=== PATIENT | male | born 1995 | race Caucasian/White ===

== ENCOUNTER 2020-11-11 14:43 | Outpatient (REF) | payer MEDICAID, SELFPAY | END 2020-11-11 14:44 | disposition home or self-care (01) | LOC: HO.LAB 14:43 | PROVIDERS: Visit Provider Internal Medicine | DX: Z20.822 Contact with and (suspected) exposure to COVID-19 (principal) | CPT/HCPCS: 36415; C9803; U0003; U0005 ==

== ENCOUNTER 2020-11-22 12:34 | Outpatient (REF) | payer MEDICAID, SELFPAY ==
[2020-11-22 13:09] LABS: IDNOW Serial# 08D9AD1C
[2020-11-22 13:10] LABS: COVID-19 Test Negative (Negative)
== END 2020-11-22 12:35 | disposition home or self-care (01) ==
LOC: HO.LAB 12:34
PROVIDERS: Visit Provider Internal Medicine
DX: Z20.822 Contact with and (suspected) exposure to COVID-19 (principal)
CPT/HCPCS: 36415; 87635; C9803

== ENCOUNTER 2021-06-12 10:01 | Emergency (ER) | payer MEDICAID, SELFPAY ==
[2021-06-12 10:35] VITALS: BP 124/78; PULSE 78; RESP 18; TEMP 36.7; O2SAT 98; BMI 26.4
--- NOTE | 2021-06-12 11:05 | ED_ITS ---
HPI - URI/Sore Throat General Chief Complaint: Upper Respiratory Symptoms Stated Complaint: Flu symptoms Time Seen by Provider: 06/12/21 10:27 Source: patient Mode of arrival: ambulatory Limitations: no limitations History of Present Illness HPI Narrative: Patient presents to ED for slight cough, body aches, and runny nose. Patient states having similar symptoms. Patient denies any chest pain or shortness of breath. Patient states he is vaccinated against COVID. Patient states family at home having similar symptoms. MD elicited complaint: fever, cough and sore throat Related Data Allergies Allergy/AdvReac Type Severity Reaction Status Date / Time No Known Allergies Allergy Verified 06/12/21 10:36 [No Known Allergies*] Review of Systems Review of Systems: Yes all other systems are reviewed and are negative Constitutional: Constitutional: Reports as per HPI, Reports no additional constitutional complaints, Reports body ache(s), Reports chills and Reports fatigue Eyes: Eyes: Reports as per HPI and Reports no additional eye complaints ENT: Reports system reviewed and no additional complaints, except as documented, Reports as per HPI, Reports nasal congestion and Reports sore throat Cardiovascular: Cardiovascular: Reports as per HPI, Reports no additional cardiovascular complaints, Denies chest pain, Denies chest pain at rest, Denies chest pain with activity, Denies dyspnea and Denies dyspnea on exertion Respiratory: Respiratory: Reports as per HPI, Reports no additional respiratory complaints, Denies cough, Denies pain on inspiration, Denies pain with cough, Denies dyspnea and Denies dyspnea on exertion Gastrointestinal: Gastrointestinal: Reports as per HPI and Reports no additional gastrointestinal complaints Genitourinary: Genitourinary: Reports no additional male genitourinary complaints and Reports as per HPI Musculoskeletal: Musculoskeletal: Reports no additional musculoskeletal complaints and Reports as per HPI Neurologic: Reports system reviewed and no additional complaints, except as documented and Reports as per HPI Psychiatric: Psychiatric: Reports no additional psychiatric complaints and Reports as per HPI Endocrine: Endocrine: Reports fatigue PMFSH Past Medical History Medical History (Updated 06/12/21 @ 11:54 by MARY Kulkarni) No known health problems Social History Social History Advance Directives: No Advance Directives Information Provided: Yes Physical Exam Vital Signs: Vital Signs: Last Vital Signs Temp 98.0 F 06/12/21 10:35 Pulse 78 06/12/21 10:35 Resp 18 10/25/21 10:35 BP 124/78 06/12/21 10:35 Pulse Ox 98 06/12/21 10:35 Body Mass Index 26.4 Const: General: cooperative, healthy appearing, comfortable, no acute distress, well developed, alert, awake and Physically active Orientation/con sciousness: patient oriented x3 HENMT: Head: Yes normal to inspection, Yes No palpable skull fracture present, Yes normocephalic, Yes atraumatic and No abrasion Ears: hearing grossly normal bilaterally, external ears normal, TM's normal bilaterally, TM normal on the right, TM normal on the left, EAC's normal, mastoids normal and no periauricular adenopathy General nose exam: Normal external nose present and Normal nares present Face and sinus: Yes normal facial exam and Yes sinuses nontender Teeth and gingiva: dentition normal and gingiva normal Throat: Yes posterior oropharynx normal, Yes tonsils normal and Yes uvula midline Eyes: General: appearance normal, both eyes and all related structures Neck: Neck: Yes normal visual inspection, Yes full ROM, Yes no lymphadenopathy, Yes no meningeal signs, Yes trachea midline, Yes supple and No tender Chest: Chest palpation & inspection: normal inspection of the chest and normal palpation of entire chest wall Resp: Effort & Inspection: normal respiratory effort and able to speak in complete sentences Auscultation: clear to auscultation bilaterally Cardio: Jugular venous distension: no JVD Heart sounds: S1 normal heart sound present and S2 normal heart sound present GI: Inspection: Yes normal to inspection and No abdominal wall ecchymosis Palpation (GI): Soft to palpation, not firm, nontender, no guarding and not rigid : General: No CVA tenderness and Yes no CVA tenderness Back/Spine/Pelvis: Back: no CVA tenderness, No CVA tenderness and No back tenderness Skin: General skin exam: no rashes or lesions noted and elasticity normal Neuro: General: patient oriented x3, gait normal, no meningeal signs and CN's II-XI intact bilaterally Cranial nerves: Yes CN's II-XII intact bilaterally Extrem: General: Yes normal to inspection and Yes full ROM Psych: Appearance: grossly normal, well kempt and not disheveled Course Course Course Narrative: Patient is swabbed for COVID and strep. Reevaluation(s) Reevaluation #1: Patient's COVID swab, influenza, RSV, and strep test came back negative. Patient is safe for discharge. Time: 11:52 MDM - URI/Sore Throat MDM Narrative Medical decision making narrative: URI. Viral syndrome Lab Data Labs: Lab Results 06/12/21 06/12/21 06/12/21 Range/Units 10:50 10:50 11:19 Coronavirus (PCR) NEGATIVE (Negative) COVID-19 ([facility]ELICA) Negative (Negative) COVID-19 Clin Com See Note Influenza Type A (PCR) NEGATIVE (Negative) Influenza Type B (PCR) NEGATIVE (Negative) RSV RNA Qual (PCR) NEGATIVE (Negative) S. pyogenes GrpA WANDA Negative (Negative) Discharge Plan Discharge Clinical Impression: Upper respiratory infection Patient Disposition: Home, Self-Care Instructions: Upper Respiratory Infection (ED), Viral Syndrome (ED) Additional Instructions: Sood hisopo COVID, influenza, RSV, prueba de estreptococos result? negativa. Sherif un seguimiento con el proveedor de atenci?n primaria. Regrese al servicio de urgencias si tiene dolor en el pecho, dificultad para respirar, babeo, cambio en la voz, ronquera, dolor en la pantorrilla, debilidad, mareos, fiebre o cualquier otro s?ntoma preocupante. Stand Alone Forms: Work/School Release Interventions: ED Discharge Assessment Last Done: 06/12/21 11:56 Discharge Date/Time: 06/12/21 11:59 Print Language: Salvadorean
[2021-06-12 11:16] LABS: IDNOW Serial# 9DD0AD1C
[2021-06-12 11:17] LABS: COVID-19 Test Negative (Negative)
[2021-06-12 11:38] LABS: Strep A Nucleic Acid Negative (Negative)
[2021-06-12 11:43] LABS: Influenza A PCR NEGATIVE (Negative); Influenza B PCR NEGATIVE (Negative); Resp Syncy Virus RNA Qual PCR NEGATIVE (Negative); SARS COV2 PCR INHOUSE NEGATIVE (Negative)
== END 2021-06-12 11:59 | disposition home or self-care (01) ==
PROVIDERS: Physician Assistant; Emergency Provider Emergency Medicine; PCP Family Medicine
DX: J06.9 Acute upper respiratory infection, unspecified (principal); Z20.822 Contact with and (suspected) exposure to COVID-19
CPT/HCPCS: 0241U; 36415; 87635; 87651; 99283

== ENCOUNTER 2021-09-04 08:09 | Outpatient (REF) | payer MEDICAID, SELFPAY ==
[2021-09-04 11:18] LABS: Binax Internal Control QC Valid; Binax Now Covid-19 Ag Positive (Negative)
== END 2021-09-04 08:10 | disposition home or self-care (01) ==
LOC: HO.LAB 08:09
PROVIDERS: Visit Provider Internal Medicine
DX: Z13.89 Encounter for screening for other disorder (principal)

== ENCOUNTER 2022-03-27 06:11 | Emergency (ER) | payer MEDICAID, SELFPAY ==
--- NOTE | ~2022-03-27 | XR_ITS ---
EXAMINATION: XR CHEST CLINICAL INFORMATION: Cough COMPARISON: None TECHNIQUE: Frontal view of the chest was obtained. FINDINGS: The lungs are well expanded. There is no focal consolidation, edema, or effusion. No pneumothorax. The cardiomediastinal silhouette is within normal limits. No acute osseous abnormality. XR/XR chest 1V IMPRESSION: Clear lungs.
[2022-03-27 06:22] VITALS: BP 133/83; PULSE 79; RESP 16; TEMP 36.4; O2SAT 98; BMI 27.6
[2022-03-27 07:50] LABS: COVID-19 Test Negative (Negative)
[2022-03-27 07:52] LABS: IDNOW Serial# 9DB6401D; Influenza A Negative (Negative); Influenza B2 Negative (Negative)
--- NOTE | 2022-03-27 09:04 | ED.URI ---
HPI - URI/Sore Throat General Chief Complaint: Upper Respiratory Symptoms Stated Complaint: chest pain, difficulty breathing Time Seen by Provider: 03/27/22 09:04 Source: patient Mode of arrival: ambulatory History of Present Illness HPI Narrative: 26-year-old male with presentation for sore throat, dry cough, chest discomfort with cough as well as subjective fevers since Saturday and denies any sick contacts. Related Data Allergies Allergy/AdvReac Type Severity Reaction Status Date / Time No Known Allergies Allergy Verified 03/27/22 06:24 [No Known Allergies*] Review of Systems Review of Systems: Pertinent positives and negatives as stated in HPI 10 point review of systems is otherwise negative. PMFSH Past Medical History Source: nursing notes reviewed Medical History No known health problems Social History Social History Advance Directives: No Advance Directives Information Provided: No Physical Exam Vital Signs: Vital Signs: Last Vital Signs Temp 97.5 F 03/27/22 06:22 Pulse 79 03/27/22 06:22 Resp 16 03/27/22 06:22 BP 133/83 03/27/22 06:22 Pulse Ox 98 03/27/22 06:22 O2 Del Method 03/27/22 06:22 BMI result Body Mass Index 27.6 VITAL SIGNS: Reviewed. GENERAL: Well developed, well nourished, in no acute distress. HEAD: Normocephalic/atraumatic EYES: PERRLA, EOMI EARS: Ext canals without abnormality, TMs non-bulging and non-erythematous NOSE: Nares patent bilateral OROPHARYNX: no oral lesions noted, posterior pharynx clear and non-erythematous without noted tonsillar enlargement/erythema/exudates NECK: Supple, no adenopathy LUNGS: Normal breath sounds. No adventitious sounds or accessory muscle use. SpO2<98> CARDIOVASCULAR: Regular rate and rhythm without noted murmurs ABDOMEN: Soft, non-tender, non-distended with bowel sounds. NEUROLOGIC: Alert and oriented x 4. Strength and sensation to light touch were grossly intact x 4. Course Course Course Narrative: 26-year-old male with history and clinical presentation consistent with viral syndrome and on review of all investigations there is no evidence of COVID-19 infection at this time. Patient was provided with combination analgesics and instructed to continue COVID-19 testing for the next 2 days and otherwise discharged home in stable condition. MDM - URI/Sore Throat Lab Data Labs: Lab Results 03/27/22 03/27/22 Range/Units 07:27 07:28 COVID-19 (ANGELICA) Negative (Negative) COVID-19 Clin Com See Note Influenza Type A (WANDA) Negative (Negative) Influenza Type B (WANDA) Negative (Negative) Influenza A & B Note See Note Discharge Plan Discharge Clinical Impression: Viral syndrome, Lab test negative for COVID-19 virus Patient Disposition: Home, Self-Care Instructions: Viral Syndrome (ED) Additional Instructions: 1. Recommend [id number] Tylenol/ibuprofen as needed for symptoms and continue to drink plenty of water. You should continue to test for COVID-19 for the next 2 days. Return to the ER for worsening symptoms. Stand Alone Forms: Work/School Release
[2022-03-27] MEDS: Ibuprofen 400 MG TABLET PO (09:16)
[2022-03-27] MEDS: Acetaminophen 325 MG TABLET 975 MG PO (09:16)
== END 2022-03-27 09:20 | disposition home or self-care (01) ==
PROVIDERS: Emergency Provider Student in an Organized Health Care Education/Training Program
DX: B34.9 Viral infection, unspecified (principal); J02.9 Acute pharyngitis, unspecified; Z20.822 Contact with and (suspected) exposure to COVID-19
CPT/HCPCS: 71045; 87502; 87635; 99283

== ENCOUNTER 2023-04-28 00:54 | Emergency (ER) | payer OTHER, SELFPAY ==
--- NOTE | ~2023-04-28 | XR_ITS ---
EXAMINATION: XR FOOT, LEFT X-ray ankle left minimal 3 views CLINICAL INFORMATION: Pain COMPARISON: None available. TECHNIQUE: AP, lateral, and oblique views of the left foot. FINDINGS: Ankle: The bone mineralization is normal. There is no fracture. The joint spaces are maintained. There is mild soft tissue swelling about the ankle. Foot: The bone mineralization is normal. The joint spaces are maintained. There is no fracture. The soft tissues are unremarkable. XR/XR foot LT min 3V IMPRESSION: Mild soft tissue swelling about the ankle. No acute osseous abnormality of the ankle or foot.
--- NOTE | ~2023-04-28 | XR_ITS ---
EXAMINATION: XR FOOT, LEFT X-ray ankle left minimal 3 views CLINICAL INFORMATION: Pain COMPARISON: None available. TECHNIQUE: AP, lateral, and oblique views of the left foot. FINDINGS: Ankle: The bone mineralization is normal. There is no fracture. The joint spaces are maintained. There is mild soft tissue swelling about the ankle. Foot: The bone mineralization is normal. The joint spaces are maintained. There is no fracture. The soft tissues are unremarkable. XR/XR ankle LT min 3V IMPRESSION: Mild soft tissue swelling about the ankle. No acute osseous abnormality of the ankle or foot.
[2023-04-28 01:46] VITALS: BP 131/80; PULSE 75; RESP 16; TEMP 36.7; O2SAT 98; BMI 30.2
--- NOTE | 2023-04-28 02:21 | PC.NURSE ---
Pt ca&ox4, no signs of distress. Pt is SPO Pt reports 9/10 left ankle pain Pts family member at bedside. Pt taken to CT. Plan of care ongoing.
--- NOTE | 2023-04-28 04:23 | ED_ITS ---
HPI - Extremity Injury (Lower) General Chief Complaint: Extremity Injury, Lower Stated Complaint: fall @ work Time Seen by Provider: 04/28/23 04:16 History of Present Illness HPI Narrative: Patient is a 27-year-old male presents today with having left ankle pain. Patient twisted it yesterday at work. Complaining of pain continuing. Pain is worse with ambulation. No head injury. Patient not on blood thinners. No nausea no vomiting. No pain in hip no pain in the knee. No head injury. Related Data Allergies Allergy/AdvReac Type Severity Reaction Status Date / Time No Known Allergies Allergy Verified 03/27/22 06:24 [No Known Allergies*] Review of Systems Review of Systems: Positive pain to the left ankle Yes all other systems are reviewed and are negative PMFSH Past Medical History Attestation statement: The following information was validated with the patient. Medical History No known health problems Social History Social History Smoked in Last 30 Days: No Use of substances other than those prescribed or required for medical reasons: No Advance Directives: No Advance Directives Information Provided: No Physical Exam Vital Signs: Vital Signs: Last Vital Signs Temp 97.9 F 04/28/23 04:38 Pulse 72 04/28/23 04:38 Resp 18 04/28/23 04:38 BP 116/73 04/28/23 04:38 Pulse Ox 100 04/28/23 04:38 O2 Del Method Room Air 04/28/23 04:38 BMI result Body Mass Index 30.2 Appearance: Alert. Oriented X3. No acute distress. Eyes: Pupils equal, round and reactive to light. ENT: Pharynx normal. Neck: Normal inspection. Neck supple. No lymph nodes noted. No crepitus CVS: Normal heart rate and rhythm. Pulses normal. Normal S1 and S2 Respiratory: No respiratory distress. Breath sounds normal. No Wheezing. No rales Abdomen: Soft and nontender. No rigidity. No distention. good BS x4 Skin: Skin warm and dry. Normal skin color. Normal skin turgor. Examination of the left ankle there is no tenderness on palpation the medial malleolus. There is minimal swelling over the lateral malleolus. There is no tenderness at the base of the 5th metatarsal. Distally sensation intact. Pulse 2 +. Moving his toes well. Neuro: Oriented X 3. No motor deficit. No sensory deficit. Moving all exter mities. No slurred speech Medical Decision Making Medical Decision Making MDM Narrative: Patient has positive pain to the lateral malleolus. But still tenderness on palpation of the posterior aspect of the lateral malleolus. There is some mild swelling over the dorsum of the foot. Patient sensation intact. Pulses intact. Capillary refill less than 2 seconds. X-ray showed no acute ankle or foot fracture. Will ask patient to use Motrin Differential Diagnosis Differential Diagnoses: The differential diagnosis associated with the presentation includes Fracture, ankle sprain Independent Interpretation I performed an independent interpretation of an: Plain X-Ray Interpretation: X-ray of the ankle and foot were both negative Radiology Impression Discussion of test interpretation with radiology: I have reviewed the radiologist's reading. Discharge Plan Discharge Clinical Impression: Ankle sprain and strain Patient Disposition: Home, Self-Care Instructions: Ankle Sprain (DC) Referrals: Physician,Unknown J [Primary Care Provider] - 2 days
[2023-04-28 04:38] VITALS: BP 116/73; PULSE 72; RESP 18; TEMP 36.6; O2SAT 100
== END 2023-04-28 05:14 | disposition home or self-care (01) ==
PROVIDERS: Emergency Provider Emergency Medicine Emergency Medical Services
DX: S93.402A Sprain of unspecified ligament of left ankle, initial encounter (principal); M25.572 Pain in left ankle and joints of left foot; X50.1XXA Overexertion from prolonged static or awkward postures, initial encounter; Y93.9 Activity, unspecified; Y92.9 Unspecified place or not applicable; Y99.0 Civilian activity done for income or pay
CPT/HCPCS: 73610; 73630; 99283; 99284

== ENCOUNTER 2024-06-28 20:18 | Emergency (ER) | payer MEDICAID, SELFPAY ==
--- NOTE | ~2024-06-28 | CT_ITS ---
EXAMINATION: CT ABDOMEN AND PELVIS WITHOUT CONTRAST CLINICAL INFORMATION: right inguinal pain - poss hernia? COMPARISON: None available. TECHNIQUE: Multidetector volumetric imaging was performed from the superior aspect of the liver through the pubic symphysis. Sagittal and coronal reformatted images were obtained on the technologist's workstation. This CT examination was performed using dose optimization techniques as appropriate, variously including the following: *Automated exposure control *Adjustment of mA and/or kV according to patient size (this includes techniques or standardized protocols for targeted exams where dose is matched to indication/reason for exam; i.e. extremities or head) *Use of iterative reconstruction technique DLP: 636 mGy-cm FINDINGS: LUNG BASES: The visualized lung bases are unremarkable. LIVER, GALLBLADDER, AND BILIARY TREE: The liver is normal in size, shape, and attenuation. No focal hepatic lesion or biliary ductal dilatation is present. The gallbladder is unremarkable with no evidence of radiopaque gallstones, gallbladder wall thickening, or obvious pericholecystic inflammatory changes. PANCREAS: Unremarkable. SPLEEN: Unremarkable. ADRENAL GLANDS: Unremarkable. KIDNEYS AND URETERS: The kidneys are normal in size, shape, and attenuation. No hydronephrosis, hydroureter, or calculi seen. No perinephric stranding. BLADDER: Unremarkable. GASTROINTESTINAL TRACT: The small and large bowel are unremarkable. The appendix is unremarkable. ABDOMINAL WALL: Small fat and fluid-containing right inguinal hernia. LYMPH NODES: Normal. VASCULAR: Unremarkable. PELVIC VISCERA: Unremarkable. OSSEOUS STRUCTURES: Unremarkable. CT/CT abdomen pelvis wo IV con IMPRESSION: Small fat and fluid-containing right inguinal hernia. Fleischner guidelines were followed. Electronically signed by: Leyda Blanchard MD 06/28/2024 10:33 PM [facility]
[2024-06-28 20:40] VITALS: BP 142/95; PULSE 80; RESP 18; TEMP 37.4; O2SAT 99; BMI 29.2
--- NOTE | 2024-06-28 20:42 | ED.GENADULT ---
HPI - General Adult General Chief complaint: Abdominal Pain Stated complaint: pelvic injury moving furniture Time Seen by Provider: 06/28/24 23:44 Source: patient Mode of arrival: ambulatory Limitations: no limitations History of Present Illness ED Provider: juno WALTER narrative: Patient with history of hernia on right inguinal area for last 2 months getting bigger without any significant pain never seen a surgeon no nausea no vomiting Related Data Allergies Allergy/AdvReac Type Severity Reaction Status Date / Time No Known Allergies Allergy Verified 06/28/24 20:42 [No Known Allergies*] Review of Systems Review of Systems: Yes all other systems are reviewed and are negative [facility] Past Medical History Medical History No known health problems Social History Social History Smoked in Last 30 Days: No Use of substances other than those prescribed or required for medical reasons: No Advance Directives: No Advance Directives Information Provided: Yes Physical Exam ED Vital Signs: Vital Signs - 24 hr 06/28/24 20:40 06/28/24 23:52 06/29/24 00:00 Temperature 99.3 F 97.8 F 97.8 F Pulse Rate 80 81 81 Respiratory Rate 18 14 14 Blood Pressure 142/95 H 117/70 117/70 Pulse Oximetry 99 96 96 Oxygen Delivery Method Room Air Room Air Room Air BMI result Body Mass Index 29.2 Appearance: Alert. Oriented X3. No acute distress. Neck: Normal inspection. Neck supple. CVS: Normal heart rate and rhythm. Pulses normal. Respiratory: No respiratory distress. Equal air entry bilateral, no wheezing/rales/rhonchi Abdomen: Soft and nontender. Right inguinal area small fat containing hernia reducible Bowel sounds are present, no CVA tenderness Skin: Skin warm and dry. Normal skin color. Normal skin turgor. Extremities: No lower extremity edema. No calf tenderness Neuro: Oriented X 3. Course Course Course Narrative: RME performed by Teri Castellanos PA-C. Patient is a 29 year old assigned male at presenting to the emergency department with right inguinal pain over the last 2 months. Patient states 2 months ago he was poked in the right groin by the corner of a desk and ever since he has had a ball that develops there then goes away. Detailed physical exam and review of systems are deferred to the accountant helper. Labs and imaging ordered. Patient placed back in the waiting room pending room availability and results. Medical Decision Making Medical Decision Making [facility] Narrative: Patient with fat containing right inguinal hernia nontender no signs of obstruction will advised to follow up with surgeon Lab Data [facility] Lab Attestation statement: I reviewed the patient's lab results. 06/28/24 20:50 06/28/24 20:50 Labs: Lab Results 06/28/24 Range/Units 20:50 WBC 8.6 (4.8-10.8) X10*3/uL RBC 5.16 (4.60-5.80) X10*6/uL Hgb 15.6 (14.0-18.0) g/dl Hct 44.3 (42.0-52.0) % MCV 85.9 (80.0-98.0) fL MCH 30.2 (27.0-33.0) pg MCHC 35.2 (31.0-36.0) g/dl RDW 12.2 (11.0-16.0) % Plt Count 266 (160-400) X10*3/uL MPV 8.6 L (9.4-12.4) fL Immature Gran % (Auto) 0.2 (0.0-0.4) % Neut % (Auto) 44.4 L (45-73) % Lymph % (Auto) 43.5 H (20-40) % [place] % (Auto) 8.7 (2-11) % Eos % (Auto) 2.5 (0-4) % Baso % (Auto) 0.7 (0-2) % Lymph # (Auto) 3.7 (1.2-4.9) X10*3/uL [place] # (Auto) 0.7 (0.1-1.2) X10*3/uL Eos # (Auto) 0.2 (0.0-0.4) X10*3/uL Baso # (Auto) 0.1 (0.0-0.2) X10*3/uL Abs Immat Gran (auto) 0.02 (0.00-0.03) X10*3/uL Absolute Neuts (auto) 3.8 (2.0-8.3) x10*3/uL Absolute Nucleated RBC 0.000 (0.0-0.012) X10*3/uL Nucleated RBC % (auto) 0.0 (0.0-0.2) /100WBC Sodium 143 (135-145) mmol/L Potassium 3.8 (3.3-5.1) mmol/L Chloride 105 (96-108) mmol/L Carbon Dioxide 27 (22-29) mmol/L Anion Gap 15 (12-20) BUN 12 (9-16) mg/dL Creatinine 1.10 (0.5-1.4) mg/dL Estim Creat Clear Calc 116.5 Estimated GFR > 60 Random Glucose 79 (60-115) mg/dL Calcium 9.1 (8.4-10.2) mg/dL Total Bilirubin 0.4 (0.0-1.0) mg/dL AST 17 (5-37) U/L ALT 22 (0-40) U/L Alkaline Phosphatase 46 (39-117) U/L Total Protein 7.5 (6.5-8.0) g/dL Albumin 4.4 (3.5-5.0) g/dL Independent Interpretation I performed an independent interpretation of an: CT Scan Radiology Impression Discussion of test interpretation with radiology: I have reviewed the radiologist's reading. Radiologist Impression: [place] [id number] CT Scan Report Signed Patient: Philip Aguero MR#: [id number] : 1995 Acct:[id number] Age/Sex: 29 / M ADM Date: 06/28/24 Loc: .ED Attending Dr: Ordering Physician: Teri Castellanos Date of Service: 06/28/24 Procedure(s): CT abdomen pelvis wo IV con Accession Number(s): [id number] cc: Teri Castellanos; Physician,None ~ EXAMINATION: CT ABDOMEN AND PELVIS WITHOUT CONTRAST CLINICAL INFORMATION: right inguinal pain - poss hernia? COMPARISON: None available. TECHNIQUE: Multidetector volumetric imaging was performed from the superior aspect of the liver through the pubic symphysis. Sagittal and coronal reformatted images were obtained on the technologist's workstation. This CT examination was performed using dose optimization techniques as appropriate, variously including the following: *Automated exposure control *Adjustment of mA and/or kV according to patient size (this includes techniques or standardized protocols for targeted exams where dose is matched to indication/reason for exam; i.e. extremities or head) *Use of iterative reconstruction technique DLP: 636 mGy-cm FINDINGS: LUNG BASES: The visualized lung bases are unremarkable. LIVER, GALLBLADDER, AND BILIARY TREE: The liver is normal in size, shape, and attenuation. No focal hepatic lesion or biliary ductal dilatation is present. The gallbladder is unremarkable with no evidence of radiopaque gallstones, gallbladder wall thickening, or obvious pericholecystic inflammatory changes. PANCREAS: Unremarkable. SPLEEN: Unremarkable. ADRENAL GLANDS: Unremarkable. KIDNEYS AND URETERS: The kidneys are normal in size, shape, and attenuation. No hydronephrosis, hydroureter, or calculi seen. No perinephric stranding. BLADDER: Unremarkable. GASTROINTESTINAL TRACT: The small and large bowel are unremarkable. The appendix is unremarkable. ABDOMINAL WALL: Small fat and fluid-containing right inguinal hernia. LYMPH NODES: Normal. VASCULAR: Unremarkable. PELVIC VISCERA: Unremarkable. OSSEOUS STRUCTURES: Unremarkable. CT/CT abdomen pelvis wo IV con IMPRESSION: Small fat and fluid-containing right inguinal hernia. Fleischner guidelines were followed. Electronically signed by: Leyda Blanchard MD 06/28/2024 10:33 PM [facility] Discharge Plan Discharge Clinical Impression: Inguinal hernia of right side without obstruction or gangrene Patient Disposition: Home, Self-Care Instructions: Inguinal Hernia (ED) Additional Instructions: You have small right-sided inguinal hernia containing fat Avoid lifting heavy weights and straining Follow up with surgeon Referrals: Charan Fremin MD [Physician] - 2 weeks Interventions: ED Discharge Assessment Last Done: 06/29/24 00:00 Discharge Date/Time: 06/29/24 00:00 Print Language: Mosotho
[2024-06-28 20:54] LABS: MANUAL DIFF FLAG NO
[2024-06-28 20:55] LABS: Basophils Absolute Auto 0.1 X10*3/uL (0.0-0.2); Basophils Percent Auto 0.7 % (0-2); Eosinophils Absolute Auto 0.2 X10*3/uL (0.0-0.4); Eosinophils Percent Auto 2.5 % (0-4); Hematocrit 44.3 % (42.0-52.0); Hemoglobin 15.6 g/dl (14.0-18.0); Imm Gran Abs Auto 0.02 X10*3/uL (0.00-0.03); Imm Gran Pct Auto 0.2 % (0.0-0.4); Lymphocytes Absolute Auto 3.7 X10*3/uL (1.2-4.9); Lymphocytes Percent Auto 43.5 % (20-40); Mean Corpuscular HGB Conc 35.2 g/dl (31.0-36.0); Mean Corpuscular Hemoglobin 30.2 pg (27.0-33.0); Mean Corpuscular Volume 85.9 fL (80.0-98.0); Mean Platelet Volume 8.6 fL (9.4-12.4); Monocytes Absolute Auto 0.7 X10*3/uL (0.1-1.2); Monocytes Percent Auto 8.7 % (2-11); Neutrophils Absolute Auto 3.8 x10*3/uL (2.0-8.3); Neutrophils Percent Auto 44.4 % (45-73); Platelet Count 266 X10*3/uL (160-400); Red Blood Count 5.16 X10*6/uL (4.60-5.80); Red Cell Distribution Width 12.2 % (11.0-16.0); White Blood Count 8.6 X10*3/uL (4.8-10.8)
[2024-06-28 21:09] LABS: Alanine Aminotransferase 22 U/L (0-40); Albumin Level 4.4 g/dL (3.5-5.0); Alkaline Phosphatase 46 U/L (39-117); Anion Gap 15 (12-20); Aspartate Amino Transferase 17 U/L (5-37); Bilirubin Total 0.4 mg/dL (0.0-1.0); Blood Urea Nitrogen 12 mg/dL (9-16); Calcium 9.1 mg/dL (8.4-10.2); Carbon Dioxide 27 mmol/L (22-29); Chloride 105 mmol/L (96-108); Creatinine Clr Calc Pharmacy 116.5; Estimated Glomerular Filt Rate > 60; Glucose Random 79 mg/dL (60-115); Potassium 3.8 mmol/L (3.3-5.1); Sodium 143 mmol/L (135-145); Total Protein 7.5 g/dL (6.5-8.0)
[2024-06-28 23:52] VITALS: BP 117/70; PULSE 81; RESP 14; TEMP 36.6; O2SAT 96
--- NOTE | 2024-06-28 23:58 | PC.NURSE ---
Reviewed discharge instructions with pt. pt verbalized understanding, no sign of distress, pt able to ambulate with a steady gait, no abd gaurding.
[2024-06-29] VITALS: BP 117/70; PULSE 81; RESP 14; TEMP 36.6; O2SAT 96
== END 2024-06-29 | disposition home or self-care (01) ==
PROVIDERS: Physician Assistant Medical; Emergency Provider Internal Medicine
DX: K40.90 Unilateral inguinal hernia, without obstruction or gangrene, not specified as recurrent (principal); R10.2 Pelvic and perineal pain
CPT/HCPCS: 36415; 74176; 80053; 85025; 99284

== ENCOUNTER 2024-08-26 11:12 | Outpatient (REF) | payer MEDICAID, SELFPAY ==
[2024-08-26 13:10] LABS: MANUAL DIFF FLAG NO
[2024-08-26 13:12] LABS: Basophils Absolute Auto 0.1 X10*3/uL (0.0-0.2); Basophils Percent Auto 0.9 % (0-2); Eosinophils Absolute Auto 0.2 X10*3/uL (0.0-0.4); Eosinophils Percent Auto 2.8 % (0-4); Hematocrit 46.6 % (42.0-52.0); Hemoglobin 16.2 g/dl (14.0-18.0); Imm Gran Abs Auto 0.02 X10*3/uL (0.00-0.03); Imm Gran Pct Auto 0.3 % (0.0-0.4); Lymphocytes Absolute Auto 2.4 X10*3/uL (1.2-4.9); Lymphocytes Percent Auto 37.6 % (20-40); Mean Corpuscular HGB Conc 34.8 g/dl (31.0-36.0); Mean Corpuscular Hemoglobin 29.8 pg (27.0-33.0); Mean Corpuscular Volume 85.8 fL (80.0-98.0); Mean Platelet Volume 8.8 fL (9.4-12.4); Monocytes Absolute Auto 0.6 X10*3/uL (0.1-1.2); Monocytes Percent Auto 9.4 % (2-11); Neutrophils Absolute Auto 3.1 x10*3/uL (2.0-8.3); Platelet Count 284 X10*3/uL (160-400); Red Blood Count 5.43 X10*6/uL (4.60-5.80); Red Cell Distribution Width 12.2 % (11.0-16.0); White Blood Count 6.4 X10*3/uL (4.8-10.8)
[2024-08-26 13:29] LABS: Estimated Average Glucose 103 mg/dL; Hemoglobin A1C 137.6986 umol/L; Hemoglobin A1c % 5.2 % (<6.0); Total Hemoglobin (HGBA1C) 4194.0056 umol/L
[2024-08-26 13:49] LABS: Alanine Aminotransferase 29 U/L (0-40); Albumin Level 4.7 g/dL (3.5-5.0); Alkaline Phosphatase 41 U/L (39-117); Anion Gap 13 (12-20); Aspartate Amino Transferase 20 U/L (5-37); Bilirubin Total 0.7 mg/dL (0.0-1.0); Blood Urea Nitrogen 11 mg/dL (9-16); Calcium 9.6 mg/dL (8.4-10.2); Carbon Dioxide 29 mmol/L (22-29); Chloride 106 mmol/L (96-108); Cholesterol 220 mg/dL (<200); Estimated Glomerular Filt Rate > 60; Glucose Random 96 mg/dL (60-115); HDL Cholesterol 49 mg/dL (>40); Iron 125 mcg/dL (45-160); LDL Cholesterol Calculated 126 mg/dL (<100); Percent Iron Saturation 41 % (15-50); Potassium 4.2 mmol/L (3.3-5.1); Sodium 144 mmol/L (135-145); Total Iron Binding Capacity 304 mcg/dL (228-428); Total Protein 8.1 g/dL (6.5-8.0); Triglycerides 229 mg/dL (<150); Unsaturated Iron Binding 179 ug/dL
[2024-08-26 13:53] LABS: HBS Num1 0.73 mIU/mL (0-7.99); HBc Num1 0.11 S/CO (0.00-0.79); HBsAGNum1 0.37 S/CO (0.00-0.99); HIV AB/AG Nonreactive (Nonreactive); HIV Num 1 0.05 S/CO (0.00-0.99); Hepatitis B Core Antibody Nonreactive (Nonreactive); Hepatitis B Surface Antigen Negative (Negative); ~Hepatitis B Surface Antibody NONREACTIVE (Nonreactive)
[2024-08-26 14:04] LABS: Ferritin 300 ng/mL (20-250); TSH reflex Free T4 1.24 uIU/mL (0.32-4.0); Vitamin D 25-OH Total 42.2 ng/mL (>30)
[2024-08-26 17:14] LABS: CT PCR NOT DETECTED (Not Detect.); NG PCR NOT DETECTED (Not Detect.)
[2024-08-28 10:13] LABS: RPR Rapid Plasma Reagin NON-REACTIVE (NON-REACTIVE)
[2024-08-28 14:54] LABS: HCV Log PCR <1.18 NOT DETECTED Log IU/mL (NOT DETECTED); HepC Viral Load <15 NOT DETECTED IU/mL (NOT DETECTED)
== END 2024-08-26 11:13 | disposition home or self-care (01) ==
LOC: HO.HHCL 11:12
PROVIDERS: Visit Provider Registered Nurse
DX: Z00.00 Encounter for general adult medical examination without abnormal findings (principal); Z11.59 Encounter for screening for other viral diseases; Z11.3 Encounter for screening for infections with a predominantly sexual mode of transmission
CPT/HCPCS: 80053; 80061; 82306; 82728; 83036; 83540; 84443; 85025; 86592; 86704; 86706; 87340; 87389; 87491; 87522; 87591

== ENCOUNTER → 2024-09-17 20:30 | Outpatient (REF) | payer MEDICAID, SELFPAY ==
--- OUTSIDE RECORDS SUMMARY | 2024-09-17 21:24 | XMS_ITS | Encounter Summary ---
Author Organization [employer] Address [address] [facility] [address] [place] [address] Care Team Providers Care Donor Relations Officer Name Role Phone Cami Escamilla ALTERATION SPECIALIST Primary Care Provider [phone] Encounter Details Date Type Department Care Team (Latest Contact Info) Description 08/26/2024 Travel Social History Tobacco Use Types Packs/Day Years Used Date Smoking Tobacco: Never Smokeless Tobacco: Never Alcohol Use Standard Drinks/Week Comments Never 0 (1 standard drink = 0.6 oz pur e alcohol) Depression Answer Date Recorded Patient Health Questionnaire-9 Score 0 01/29/2024 Patient Health Questionnaire-9 Score 0 01/29/2024 Last PHQ-9: Questionnaire Data Not on file 0 01/29/2024 Housing Stability Answer Date Recorded What is your housing situation today? I have dellrafa gonsales 01/29/[address] you li ve. Do you have problems with any of the following? None of the above 01/29/2024 Food Insecurity Answer Date Recorded Within the past 12 months, y ou worried that your food would run out before you got money to buy more: Never True 01/29/2024 Within the past 12 months,th e food you bought just didn't last and you didn't have enough money to get more: Never True 07/2024 Transportation Answer Date Recorded In the past 12 months, has l ack of transportation kept you from medical appts, meetings, work or from getting things needed for daily living? No 01/29/2024 Utilities Answer Date Recorded In the past 12 months, has t he electric, gas, oil or water company threatened to shut off services in your home? I am not sure 01/29/2024 Depression Answer Date Recorded Patient Health Questionnaire-2 Score 0 01/29/2024 Sex and Gender Information Value Date Recorded Sex Assigned at Male 06/18/2022 10:30 AM EDT Legal Sex Male 10:30 AM EDT Gender Identity Male 06/18/2022 10:30 AM EDT Sexual Orientation Choose not to disclose 2021 10:30 AM EDT documented as of this encounter Plan of Treatment Not on file documented as of this encounter Visit Diagnoses Not on filedocumented in this encounter Additional Health Concerns Assessment Noted Time PHQ-9 Depression Total Score: 0 01/29/20 24 11:38 AM EDT documented as of this encounter Care Teams Donor Relations Officer Relationship Specialty Start Date End Date Cami Escamilla FNP [address] [place] [id number] PCP - General Family Medicine 02/09/22 documented as of this encounter
--- OUTSIDE RECORDS SUMMARY | 2024-09-17 21:24 | XMS_ITS | Encounter Summary ---
Author Organization [employer] Address [address] [facility] [address] [place] [address] Care Team Providers Care Diet Supervisor Name Role Phone Cami Escamilla Primary Care Provider [phone] Reason for Visit * Reason Onset Date Comments Nurse Triage 08/05/2024 Encounter Details Date Type Department Care Team ([facility] st Contact Info) Description 08/05/2024 Telephone [facility] [address] [place] [address] Cami Escamilla FNP [address] [place] [address] Nurse Triage Social History Tobacco Use Types Packs/Day Years [...] is your housing situation today? I have dell gonsales 01/29/[address] you [...] AM EDT documented as of this encounter Miscellaneous Notes * Telephone Encounter - Carmen Penn RN - 08/05/2024 4:42 PM EST Triage call Pt reports dizziness like being on a merry go round with headache, fatigue. Neg for fever. Increased sleep for last 2 months. Pt is able to do daily activities. Pt also has a lump LRQ of abdomen which ED reports is a hernia and Pt was advised to follow up for evaluation. Pt has family history of anemia . Pt drinks adequate liquids. ASK apt with PCP 08/26/23 @ 1015am. Pt agrees withdisposition . Insurance is verified as active prior to booking. Protocol Used: Weakness (Generalized) and Fatigue (Adult) Care Advice Discussed: * Reasons To Call Back * Drink Fluids * Rest * Reasons To Call Back - Still feeling weak after 2 hours of rest and fluids - Passes out (faints) - You become worse * Telephone Encounter - Ira Barnhart - 08/05/2024 4:26 PM EST Symptom: Lethargic (Tired) Outcome: Schedule an urgent appointment (within 4 hours) or talk to a nurse or provider soon Reason: Getting worse The caller accepted this outcome. documented in this encounter Plan of Treatment Not on file documented as of this encounter Visit Diagnoses Not on filedocumented in this encounter Additional Health Concerns Assessment Noted Time PHQ-9 Depression Total Score: 0 01/29/20 11:38 AM EDT documented as of this encounter Care Teams Diet Supervisor Relationship Specialty Start Date End Date Cami Escamilla FNP [address] [place] [address] PCP - General Family Medicine 02/09/22 documented as of this encounter
--- OUTSIDE RECORDS SUMMARY | 2024-09-17 21:24 | XMS_ITS | Clinical Summary ---
Author Organization [employer] Address [address] [facility] [address] [place] [address] Care Team Providers Care Aircraft Shipping Checker Name Role Phone Cami Escamilla [employer] Primary Care Provider [phone] Allergies No known active allergies Medications Blood Pressure kitIndications: Elevated blood pressure reading Please check blood pressure once daily for the next 2 weeks 1 kit 01/29/2024 Active Active Problems Problem Noted Date Diagnosed Date Daytime sleepiness 08/26/2024 Assessment & Plan (08/26/2024 3:16 PM EST): - Excess sleep: 2-3 nap during day plus 8-10 hours per night and still does not feel well rested - Plan: labs for eval of thyroid, blood counts, iron levels, and routine labs. Hospital based sleep study ordered for further evaluation. Right inguinal hernia 08/26/2024 Overview (08/26/2024): CT abd/pelvis Jun 2024: Small fat and fluid-containing right inguinal hernia. Referral to Surgery placed 08/26/24 ED precautions Elevated blood pressure reading 01/30/2024 Assessment & Plan (02/16/2024 1:30 PM EDT): BP elevated on initial and repeat in office January 2024. However, home BP readings WNL. Possible white coat hypertension. No need to initiate medication at this time. Encouraged low salt diet, routine physical activity Follow up precautions reviewed Assessment & Plan (01/30/2024 10:43 AM EDT): BP elevated on initial and repeat in office. Pt asymptomatic - no chest pain, palpitations, SOB, CERRATO, or other associated symptom Encouraged low salt diet, routine physical activity BP kit sent to pharmacy, home log and instructions provided at end of visit Follow up precautions Severe dental caries 01/16/2024 Resolved Problems Problem Noted Date Diagnosed Date Resolved Date Pain in elbow 02/15/2017 09/12/2022 Encounters Date Type Department Care Team Description 09/11/[address] [facility] [address] [place], [place] [phone] Evelin Butt RN Results 09/11/[address] [facility] [address] [place], [place] [phone] Cami Escamilla FNP Elevated ferritin (Primary Dx) 08/28/[address] [facility] [address] [place], [place] [phone] Cami Escamilla FNP 08/26/2024 10:15 AM EST Office Visit [facility] [address] [place], [place] [phone] Cami Escamilla FNP Right inguinal hernia (Primary Dx); Healthcare maintenance; Daytime sleepiness; Witnessed episode of apnea; Snoring; Dietary counseling; Exercise counseling 08/26/2024 Travel 08/05/[address] [facility] [address] [place], [place] [phone] Cami Escamilla FNP ER Follow-up 08/05/[address] [facility] [address] [place], [place] [phone] Cami Escamilla FNP Nurse Triage from Last 3 Months Immunizations Name Administration Dates Next Due Influenza injectable quadriv alent preservative free 09/12/2022,05/31/2020,05/24/2017 Moderna Covid-19 Vaccine 12+ 01/03/2021,12/08/19 21 Tdap 01/29/2024 Family History Medical History Relation Name Comments Anxiety disorder Father shortness of breath Father Hypertension Mother dorsalgia Mother Colon cancer Mother's Brother Anxiety disorder Sister Relation Name Status Comments Father Mother Mother's Brother Sister Social History Tobacco Use Types Packs/Day Years Used Date Smoking Tobacco: Never Smokeless Tobacco: Never Tobacco Cessation:Counseling Given: Not Answered Alcohol Use Standard Drinks/Week Comments Never 0 [...] not to disclose 2021 10:30 AM EDT Last Filed Vital Signs Vital Sign Reading Time Taken Comments Blood Pressure 131/89 08/26/2024 10:23 AM EST Pulse 77 08/26/2024 10:23 AM EST Temperature 36.4 ??C (97.5 ??F) 08/26/2024 10:[address] Respiratory Rate 20 08/26/2024 10:23 AM EST Oxygen Saturation 98% 08/26/2024 10:23 AM EST Inhaled Oxygen Concentration - - Weight 98.6 kg (217 lb 6.4 oz) 08/26/2024 10:23 AM EST Height 180.3 cm (5' 11 ) 08/26/2024 10:23 AM EST Body Mass Index 30.32 08/26/2024 10:23 AM EST Plan of Treatment Health Maintenance Due Date Last Done Comments Family Planning (PISQ) 2010 Hepatitis A Vaccines (1 of 2 - Risk 2-dose series) 2014 Hepatitis B Vaccines (1 of 3 - 19+ 3-dose series) 2014 Dental Oral Exam 10/21/2024 04/22/2024 Dental Prophylaxis 10/21/2024 04/22/2024 Depression Screening 01/28/2025 01/29/2024, 01/29/2024 SDOH Screening 01/28/2025 01/29/2024 Influenza Vaccine (#1) 2025 , 05/31/2020, 05/24/2017 Postponed from 04/19/2024 (Patient Refused) Dental X-Ray: Bitewings 04/23/2025 04/22/20 24, 06/21/2023, 06/22/2022 Alcohol/Substance Use Screening 08/26/2025 08/26/2024 COVID-19 Vaccine (3 - 2023-2 5 season) 2025 01/03/2021, 12/07/2020 Postponed from 04/19/2024 (Patient Refused) Tobacco Screening 08/26/2025 08/26/2024 Dental X-Ray: Full Mouth 04/23/2027 04/22/2024 DTaP/Tdap/Td Vaccines (2 - T d or Tdap) 01/28/2034 01/29/2024 Zoster Vaccines (1 of 2) 2045 RSV Patients and Patients Aged 60 years or older (1 - 1-dose 75+ series) 2070 HIV Screening Completed 08/26/2024 Hepatitis C Screening Completed 08/26/2024 HIB Vaccines Aged Out No longer eligi ble based on patient's age to complete this topic HPV Vaccines Aged Out No longer eligi ble based on patient's age to complete this topic IPV Vaccines Aged Out No longer eligi ble based on patient's age to complete this topic Meningococcal Vaccine Aged Out No yvonne perry eligible based on patient's age to complete this topic Pneumococcal Vaccine: Pediatrics (0 to 5 Years) and At-Risk Patients (6 to 49) Years) Aged Out No longer eligible b ased on patient's age to complete this topic RSV under 20 months Aged Out No longe r eligible based on patient's age to complete this topic Rotavirus Vaccines Aged Out No longer eligible based on patient's age to complete this topic Procedures Procedure Name Priority Date/Time Associated Diagnosis Comments VITAMIN D,25-OH,TOTAL,IA Routine 08/26/2024 11:14 AM EST Healthcare maintenance HEPATITIS B SURFACE ANTIGEN, EIA Routine 08/26/2024 11:14 AM EST Healthcare maintenance HEPATITIS B SURFACE ANTIBODY, QUALITATIVE Routine 08/26/2024 11:14 AM EST Healthcare maintenance HEPATITIS B CORE AB TOTAL Routine 08/26/2024 11:14 AM EST Healthcare maintenance FERRITIN Routine 08/26/2024 11:14 AM EST Healthcare maintenance IRON AND TOTAL IRON BINDING CAPACITY Routine 08/26/2024 11:14 AM EST Healthcare maintenance HIV 1/2 ANTIGEN/ANTIBODY, FOURTH GENERATION W/RFL Routine 08/26/2024 11:14 AM EST Healthcare maintenance RPR (MONITOR) W/REFL TITER Routine 08/26/2024 11:14 AM EST Healthcare maintenance HEPATITIS C VIRAL RNA, QUANTITATIVE, REAL-TIME PCR Routine 08/26/2024 11:14 AM EST Healthcare maintenance CBC WITH AUTO DIFFERENTIAL Routine 08/26/2024 11:14 AM EST Healthcare maintenance COMPREHENSIVE METABOLIC PANEL Routine 08/26/2024 11:14 AM EST Healthcare maintenance TSH W/REFLEX TO FT4 Routine 08/26/2024 1 1:14 AM EST Healthcare maintenance HEMOGLOBIN A1C Routine 08/26/2024 11:14 AM EST Healthcare maintenance LIPID PANEL, STANDARD Routine 08/26/2024 11:14 AM EST Healthcare maintenance CHLAMYDIA/N. GONORRHOEAE RNA, TMA, UROGENITAL Routine 08/26/2024 11:14 AM EST Healthcare maintenance PROPHYLAXIS - ADULT Routine 04/22/2024 9 :30 AM EDT DIAGNOSTIC - DIAGNOSTIC IMAGING - INTRAORAL - COMPREHENSIVE SERIES OF RADIOGRAPHIC IMAGES Routine 04/22/2024 9:30 AM EDT COMPREHENSIVE ORAL EVALUATION - NEW OR ESTABLISHED PATIENT Routine 04/22/2024 9:30 AM EDT Dental calculus Encounter for dental examination Dental caries Closed fracture of incisor teeth, initial encounter from Last 3 Months or Most Recently Relevant to Health Maintenance Results * Vitamin D, 25-Hydroxy, Total, Immunoassay (08/26/2024 11:14 AM EST) Vitamin D 25-OH Total 42.2 >30 ng/mL [facility] Comment:Health Based Referen ce Values*< 20 ng/mL [id number] ng/mL Insufficient> 30 ng/mL Sufficient*Lawson ECHEVARRIA. N Engl J Med. 2007;357:266-280Care must be taken in interpreting Vitamin D results fromdifferent laboratories and methodologies. Published datademonstrated that results from patients undergoinghemodialysis may show a negative bias when tested withvarious automated 25-OH vitamin D assays when compared toLC-MS/MS.When testing samples from patients whose predominant form ofVitamin D is Vitamin D2, such as patients receiving VitaminD2 supplementation, results that are subtherapeutic shouldbe confirmed with another method such as LC-MS/MS. Blood Venous blood specimen / Unknown 08/26/2024 11:14 AM EST 08/26/2024 1:05 PM EST us Cami Escamilla [employer] LAB BLOOD ORDERABLES Final Res ult [facility] [address] [place] [phone] [phone] * TSH with Reflex to Free T4 (08/26/2024 11:14 AM EST) TSH reflex Free T4 1.24 0.32 - 4.0 uIU/mL [facility] Blood 08/26/2024 11:1 4 AM EST 08/26/2024 1:05 PM EST Cami Escamilla [facility] LAB BLOOD ORDERABLES Final Res ult Performing Organization Address [facility] de Phone Number [facility] [address] [place] [phone] * Hepatitis C Viral RNA, Quantitative, Real-Time PCR (08/26/2024 11:14 AM EST) [facility] Hepatitis C Viral Load <15 NOT DETECTED NOT DETECTED IU/mL [facility] HCV Log PCR <1.18 NOT DETECTED NOT DETECTED Log IU/mL [facility] Comment:For additional infor mation, please refer tohttp://education.[place]/faq/NGU36m4(This link is being provided for informational/educational purposes only.)THIS TEST WAS PERFORMED AT:[email or web address] [place] [phone] GREGORY MD Blood 08/26/2024 11:1 4 AM EST 08/26/2024 1:05 PM EST Cami Escamilla [facility] BLOOD ORDERABLES Final Res ult Performing Organization Address [facility] Phone Number [facility] [address] [place] [phone] * (ABNORMAL) CBC auto differential (08/26/2024 11:14 AM EST) [facility] White Blood Count 6.4 4.8 - 10.8 X10*3/uL [facility] Red Blood Count 5.43 4.60 - 5.80 X10*6/uL [facility] Hemoglobin 16.2 14.0 - 18.0 g/dl [facility] Hematocrit 46.6 42.0 - 52.0 % [facility] Mean Corpuscular Volume 85.8 80.0 - 98.0 fL [facility] Mean Corpuscular Hemoglobin 29.8 27.0 - 33.0 pg [facility] Mean Corpuscular HGB Conc 34.8 31.0 - 36.0 g/dl [facility] Red Cell Distribution Width 12.2 11.0 - 16.0 % [facility] Platelet Count 284 160 - 400 X10*3/uL [facility] Mean Platelet Volume 8.8(L) 9.4 - 12.4 fL [facility] Neutrophils Percent Auto 49.0 45 - 73 % [facility] Imm Gran Pct Auto 0.3 0.0 - 0.4 % [facility] Lymphocytes Percent Auto 37.6 20 - 40 % [facility] Monocytes Percent Auto 9.4 2 - 11 % [facility] Eosinophils Percent Auto 2.8 0 - 4 % [facility] Basophils Percent Auto 0.9 0 - 2 % [facility] NRBC Pct Auto 0.0 0.0 - 0.2 /100WBC [facility] Neutrophils Absolute Auto 3.1 2.0 - 8.3 x10*3/uL [facility] Imm Gran Abs Auto 0.02 0.00 - 0.03 X10*3/uL [facility] Lymphocytes Absolute Auto 2.4 1.2 - 4.9 X10*3/uL [facility] Monocytes Absolute Auto 0.6 0.1 - 1.2 X10*3/uL [facility] Eosinophils Absolute Auto 0.2 0.0 - 0.4 X10*3/uL [facility] Basophils Absolute Auto 0.1 0.0 - 0.2 X10*3/uL [facility] NRBC Abs Auto 0.000 0.0 - 0.012 X10*3/uL [facility] Blood Venous blood specimen / Unknown 08/26/2024 11:14 AM EST 08/26/2024 1:05 PM EST us Cami Escamilla [employer] LAB BLOOD ORDERABLES Final Res ult [facility] [address] [place] [phone] * Iron And Total Iron Binding Capacity (08/26/2024 11:14 AM EST) Iron 125 45 - 160 mcg/dL [facility] Total Iron Binding Capacity 304 228 - 428 mcg/dL [facility] Percent Iron Saturation 41 15 - 50 % [facility] Unsaturated Iron Binding 179 ug/dL [facility] Blood Venous blood specimen / Unknown 08/26/2024 11:14 AM EST 08/26/2024 1:05 PM EST Cami Escamilla [facility] BLOOD ORDERABLES Final Res ult [facility] [address] [place] [phone] * Chlamydia/N. Gonorrhoeae RNA, TMA, Urogenitial (08/26/2024 11:14 AM EST) [facility] CT PCR NOT DETECTED Not Detect. [facility] Comment:A not detected test result does not exclude the possibilityof infection because test results can be affected byimproper specimen collection, concurrent antibiotic therapy,or the number of organisms in the specimen which may bebelow the sensitivity of the test. As with many diagnostictests, results from the Xpert CT/NG assay should beinterpreted in conjunction with other laboratory andclinical data available to the clinician.Xpert CT/NG performance has not been evaluated in patientsless than 14 years of age. The assay should not be used forthe evaluationof suspected sexual abuse or for other medico-legalindications. Additional testing is recommended in anycircumstance when false positive or false negative resultscould lead to adverse medical, social or psychologicalconsequences. NG PCR NOT DETECTED Not Detect. [facility] Comment:A not detected test result does not exclude the possibilityof infection because test results can be affected byimproper specimen collection, concurrent antibiotic therapy,or the number of organisms in the specimen which may bebelow the sensitivity of the test. As with many diagnostictests, results from the Xpert CT/NG assay should beinterpreted in conjunction with other laboratory andclinical data available to the clinician.Xpert CT/NG performance has not been evaluated in patientsless than 14 years of age. The assay should not be used forthe evaluationof suspected sexual abuse or for other medico-legalindications. Additional testing is recommended in anycircumstance when false positive or false negative resultscould lead to adverse medical, social or psychologicalconsequences. Urine, Random 08/26/2024 11: 14 AM EST 08/26/2024 1:00 PM EST Narrative [facility] - 08/26/2024 5:14 PM EST Urine us Cami Escamilla [facility] MICROBIOLOGY - GENERAL ORD ERABLES Final Result Performing Organization Address [facility] Phone Number [facility] [address] [place] [phone] * Hepatitis B surface antigen, EIA (08/26/2024 11:14 AM EST) Hepatitis B Surface Ag Negative Negative [facility] Blood Venous blood specimen / Unknown 08/26/2024 11:14 AM EST 08/26/2024 1:05 PM EST Cami Escamilla [facility] BLOOD ORDERABLES Final Res ult Performing Organization Address [facility] Phone Number [facility] [address] [place] [phone] * Hepatitis B Core Antibody, Total (08/26/2024 11:14 AM EST) Hepatitis B Core Antibody Nonreactive Nonreactive [facility] Blood Venous blood specimen / Unknown 08/26/2024 11:14 AM EST 08/26/2024 1:05 PM EST Cami Escamilla [facility] BLOOD ORDERABLES Final Res ult Performing Organization Address [facility]/ZIP Co de Phone Number [facility] [address] [place] [phone] * RPR (Monitor) with Reflex to??Titer (08/26/2024 11:14 AM EST) RPR (Monitor) w/Refl Titer NON-REACTI VE NON-REACT MASHA [facility] Comment:THIS TEST WAS PERFOR MED AT:[email or web address] [place] [phone] GREGORY MD Rapid Plasma Reagin Ab Titer TNP [facility] Blood Venous blood specimen / Unknown 08/26/2024 11:14 AM EST 08/26/2024 1:05 PM EST Cami Escamilla [employer] LAB BLOOD ORDERABLES Final Res ult [facility] [address] [place] [phone] * HIV-1/2 Antigen and Antibodies, Fourth Generation, with Reflexes (08/26/2024 11:14 AM EST) HIV AB/AG Nonreactive Nonreactive [facility] Comment:HIV-1 p24 Ag and/or HIV-1/HIV-2 Ab not detected.A test result that is nonreactive does not exclude thepossibility of exposure to or infection with HIV-1 and/orHIV-2. Nonreactive results in this assay for individualswith prior exposure to HIV-1 and/or HIV-2 may be due toantigen and antibody levels that are below the limit ofdetection of this assay.The GeoEye HIV Ag/Ab Combo assay result andsupplemental assay results should be interpreted inconjunction with the patient's clinical presentation,history and other laboratory results. If the results areinconsistent with clinical evidence, additional testing issuggested to confirm the result. Blood Venous blood specimen / Unknown 08/26/2024 11:14 AM EST 08/26/2024 1:05 PM EST Cami Escamilla [employer] LAB BLOOD ORDERABLES Final Res ult Performing Organization Address City/[facility]/ZIP Co de Phone Number [facility] [address] [place] [phone] * Hepatitis B Surface Antibody, Qualitative (08/26/2024 11:14 AM EST) ~Hepatitis B Surface Antibody NONREACTIVE Nonreactive [facility] Comment:Nonreactive: < 8.00 mIU/mL Blood Venous blood specimen / Unknown 08/26/2024 11:14 AM EST 08/26/2024 1:05 PM EST Cami Escamilla [employer] LAB BLOOD ORDERABLES Final Res ult Performing Organization Address [facility] [employer] de Phone Number [facility] [address] [place] [phone] * Hemoglobin A1c (08/26/2024 11:14 AM EST) Hemoglobin A1c 5.2 <6.0 % [facility] Comment:Hemoglobin A1C Refer ence Range Adults: 4.8 - 6.0 % Non diabetic: < 6.0 % Goal: < 7.0 %Additional Action Suggested: > 8.0 %Note: Hemoglobin A1c results are invalid for patients with abnormal amounts of HbF. Blood transfusions may impact the HbA1c concentration in the patient sample. Estimated Average Glucose 103 mg/dL [facility] Comment:eAG = Estimated ave rage glucose which is %A1C expressed asaverage glucose, using the formula of the D1U-FuubbksXrzzqgz Glucose study (ADAG), Diabetes Care, Vol.31,#8,2007 Blood Venous blood specimen / Unknown 08/26/2024 11:14 AM EST 08/26/2024 1:05 PM EST Cami Escamilla [employer] LAB BLOOD ORDERABLES Final Res ult Performing Organization Address [facility] [employer] de Phone Number [facility] [address] [place] [phone] * (ABNORMAL) Ferritin (08/26/2024 11:14 AM EST) Ferritin 300(H) 20 - 250 ng/mL [facility] Blood Venous blood specimen / Unknown 08/26/2024 11:14 AM EST 08/26/2024 1:05 PM EST Cami Escamilla [facility] BLOOD ORDERABLES Final Res ult Performing Organization Address City/State/[place] Co de Phone Number [facility] [address] [place] [address] [phone] * (ABNORMAL) Lipid Panel, Standard (08/26/2024 11:14 AM EST) Triglycerides 229(H) <150 mg/dL [facility] Comment:Desirable Triglyceri de: less than 150 mg/dLBorderline High Triglyceride 150-199 mg/dLHigh Triglyceride: 200-499 mg/dLVery High Triglyceride: greater than or equal to 5OO mg/dL Cholesterol 220(H) <200 mg/dL [facility] Comment:Desirable Cholestero l: less than 200 mg/dLBorderline High Cholesterol: 200-239 mg/dLHigh Cholesterol: greater than 239 mg/dL LDL Cholesterol Calculated 126(H) <100 mg/dL [facility] Comment:Desirable LDL: less than 100 mg/dLNear Optimal/Above Optimal LDL: 110- 129 mg/dLBorderline High LDL: 130-159 mg/dLHigh LDL: 160-189 mg/dLVery High LDL: greater than or equal to 190 mg/dL HDL Cholesterol 49 >40 mg/dL [facility] Comment:Desirable HDL: great er than 40 mg/dL Note: This HDL assay may give artificially low results in patients with liver disease. Blood Venous blood specimen / Unknown 08/26/2024 11:14 AM EST 08/26/2024 1:05 PM EST Cami Escamilla [facility] BLOOD ORDERABLES Final Res ult [facility] [address] [place] [phone] * (ABNORMAL) Comprehensive Metabolic Panel (08/26/2024 11:14 AM EST) Sodium 144 135 - 145 mmol/L [facility] Potassium 4.2 3.3 - 5.1 mmol/L [facility] Chloride 106 96 - 108 mmol/L [facility] Carbon Dioxide 29 22 - 29 mmol/L [facility] Anion Gap 13 12 - 20 [facility] Urea Nitrogen (BUN) 11 9 - 16 mg/dL [facility] Creatinine, Serum 0.83 0.5 - 1.4 mg/dL [facility] Estimated Glomerular Filt Rate >60 [facility] Comment:Chronic Kidney Disea se: Estimated GFR < 60 mL/min/1.75y9Uibmpy Kidney Disease: Estimated GFR < 15 mL/min/1.73m2 Glucose 96 60 - 115 mg/dL [facility] Calcium 9.6 8.4 - 10.2 mg/dL [facility] Bilirubin, Total 0.7 0.0 - 1.0 mg/dL [facility] Aspartate Amino Transferase 20 5 - 37 U/L [facility] Alanine Aminotransferase 29 0 - 40 U/L [facility] Total Protein 8.1(H) 6.5 - 8.0 g/dL [facility] Albumin Level 4.7 3.5 - 5.0 g/dL [facility] Alkaline Phosphatase 41 39 - 117 U/L [facility] Blood Venous blood specimen / Unknown 08/26/2024 11:14 AM EST 08/26/2024 1:05 PM EST us Cmai Escamilla [employer] LAB BLOOD ORDERABLES Final Res ult Performing Organization Address City/[facility]/ZIP Co de Phone Number [facility] [address] [place] [phone] from Last 3 Months Insurance [place] MEDICAID STAND ADULT Care Teams Aircraft Shipping Checker Relationship Specialty Start Date End Date Cami Escamilla FNP [address] [place] [address] [place] [address] PCP - General Family Medicine 02/09/22
--- OUTSIDE RECORDS SUMMARY | 2024-09-17 21:24 | XMS_ITS | Encounter Summary ---
Author Organization [employer] Address [address] [facility] [address] [place] [address] Care Team Providers Care Rn Flight Name Role Phone Kerryantwan Cami BARRAZA Primary Care Provider [phone] Encounter Details Date Type Department Care Team (Late st Contact Info) Description 09/11/2024 Orders Only [facility] [address] [place], [place] [phone] Cami Escamilla FNP [address] [place], [place] [phone] Elevated ferritin (Primary Dx) Social History Tobacco Use Types Packs/Day Years [...] as of this encounter Plan of Treatment Scheduled Orders Name Type Priority Associated Diagnoses Orde r Schedule Ferritin Lab Routine Elevated ferritin Expected: 09/11/2024, Expires: 09/11/2025 Iron And Total Iron Binding Capacity Lab Routine Elevated ferritin Expected: 09/11/2024, Expires: 09/11/2025 CBC auto differential Lab Routine Elevated ferritin Expected: 09/11/2024 (Approximate), Expires: 09/11/2025 documented as of this encounter Visit Diagnoses Diagnosis Elevated ferritin- Primary Other abnormal blood chemistry documented in this encounter Additional Health Concerns Assessment Noted Time PHQ-9 Depression Total Score: 0 01/29/20 24 11:38 AM EDT documented as of this encounter Care Teams Rn Flight Relationship Specialty Start Date End Date Cami Escamilla FNP [address] [place] [phone] PCP - General Family Medicine 02/09/22 documented as of this encounter
--- OUTSIDE RECORDS SUMMARY | 2024-09-17 21:24 | XMS_ITS | Encounter Summary ---
Author Organization [employer] Address [address] [facility] 7t [place] [address] Care Team Providers Care Technical Publications Manager Name Role Phone Cami Escamilla LODGING FACILITIES ATTENDANT Primary Care Provider [phone] Reason for Visit * Reason Onset Date Comments Results 09/11/2024 Encounter Details Date Type Department Care Team ([facility] st Contact Info) Description 09/11/2024 Telephone [facility] MEDICINE [address] [place] [address] Evelin Butt RN [address] [place] [address] Results Social History Tobacco Use Types Packs/Day Years [...] encounter Miscellaneous Notes * Telephone Encounter - Evelin Butt RN - 09/11/2024 3:41 PM EST T/C placed to pt re below lab results and POC. Informed cholesterol elevated. Advised cut down on fried, fatty, processed, and sugary foods. Increased intake of fruits, vegetables, and whole grains. Informed ferritin level for iron storage is elevated. Advised to avoid alcohol, drink plenty of water, and recheck labs the end of next week at his convenience. Also informed not immune to Hep B, willneed to repeat vaccine series. Advised to come to vaccine clinic at [facility] or can start at his next appt. All other labs look good. Pt verbalized understanding and denied having any further questions orconcerns at this time. * Telephone Encounter - Evelin Butt RN - 09/11/2024 3:34 PM EST ----- Message from Cami Escamilla sent at 09/11/2024 1:47 PM EST ----- Please call to let Philip know that overall lab work was reassuring. He did have elevated cholesterol levels (LDL 126 with goal less than 100, so please encourage lifestyle interventions to help decrease risk of future cardiovascular events) -ferritin level for iron storage is elevated. Please recommend avoid alcohol use, hydrate well, andrepeat in 1 week for us to determine if truly elevated or just transient -Hep B non-immune, please rec vaccine series -Labs otherwise normal/negative Thanks! documented in this encounter Plan of Treatment Not on file documented as of this encounter Visit Diagnoses Not on filedocumented in this encounter Additional Health Concerns Assessment Noted Time PHQ-9 Depression Total Score: 0 01/29/20 24 11:38 AM EDT documented as of this encounter Care Teams Technical Publications Manager Relationship Specialty Start Date End Date Cami Escamilla FNP [address] [place] [address] PCP - General Family Medicine 02/09/22 documented as of this encounter
--- OUTSIDE RECORDS SUMMARY | 2024-09-17 21:24 | XMS_ITS | Encounter Summary ---
Author Organization [employer] Address [address] [facility] [address] [place] [address] Care Team Providers Care Hand Scudder Name Role Phone Cami Escamilla Primary Care Provider [phone] Encounter Details Date Type Department Care Team (Late st Contact Info) Description 08/28/2024 Telephone [employer] [facility] [address] [place] [address] Cami Escamilla FNP [address] [place] [address] Social History Tobacco Use Types Packs/Day Years [...] documented as of this encounter Care Teams Hand Scudder Relationship Specialty Start Date End Date Cami Escamilla FNP [address] [place] [phone] PCP - General Family Medicine 02/09/22 documented as of this encounter
--- OUTSIDE RECORDS SUMMARY | 2024-09-17 21:24 | XMS_ITS | Encounter Summary ---
Author Organization [employer] [facility] Address [address] [facility] 7t [place] [address] Care Team Providers Care Public Safety Police Name Role Phone Cami Escamilla Primary Care Provider [phone] Reason for Referral * Consultation (Routine) - Authorized Specialty Diagnoses / Procedures Referred By John boone Referred To Contact General Surgery Diagnoses Right inguinal hernia Cami Escamilla FNP [address] [place] [address] Phone: tel: fax: [facility] Referral ID Status Reason Start Date Expiration Date Visits Requested Visits Authorized [id number] Authorized Specialty Services Required 08/26/2024 08/26/2025 1 1 * Hospital - Outpatient (Routine) - Authorized Specialty Diagnoses / Procedures Referred By John boone Referred To Contact Diagnoses Daytime sleepiness Witnessed episode of apnea Snoring Procedures Polysomnography Cami Escamilla FNP [address] [place] [address] Phone: tel: fax: [facility] [address] [place] [address] Phone: tel: fax: Referral ID Status Reason Start Date Expiration Date V isits Requested Visits Authorized [id number] Authorized 08/26/2024 08/26/2025 1 1 Encounter Details Date Type Department Care Team (Late st Contact Info) Description 08/26/2024 10:15 AM EST Office Visit [facility] MEDICINE [address] [place] [address] Cami Escamilla, [employer]ING [employer]OSS [address] [place] [address] Right inguinal hernia (Primary Dx); Healthcare maintenance; Daytime sleepiness; Witnessed episode of apnea; Snoring; Dietary counseling; Exercise counseling Social History Tobacco Use Types Packs/Day Years [...] AM EDT documented as of this encounter Last Filed Vital Signs Vital Sign Reading [...] Mass Index 30.32 08/26/2024 10:23 AM EST documented in this encounter Progress Notes * Cami Escamilla, GAMING P[employer] BOSS - 08/26/2024 10:15 AM EST Subjective: Philip Alfonso is a 29 y.o. male who presents to the office for a sick visit. Interim History: Last PCP visit: 01/29/24 06/28/24: [facility] ED visit - Right inguinal hernia identified via CT. Denies any current pain or symptoms. Reports that it is visible when coughing or exerting pressure. Referred to [facility] Surgery for further eval and management. Current concerns: Excessive sleeping: reports napping for 2-3 hours during the day, as well as sleeping 8-10 hours atnight. Consistent schedule during the week. Does not feel well rested when he wakes up in the morning. Onset: years. Denies any recent changes in symptoms. Associated symptoms: snoring, witnessed episode of apneic event. Denies recent weight gain, SOB,or feeling down/depression. Does report (+) famhx of thyroid condition and anemia. Plan to check labs and hospital-based sleep study for further eval. Review of Systems Constitutional: Negative for chills, fever and unexpected weight change. Respiratory: Negative for cough and wheezing. Cardiovascular: Negative for chest pain and palpitations. Gastrointestinal: Negative for diarrhea, nausea and vomiting. Psychiatric/Behavioral: Positive for sleep disturbance. Negative for dysphoric mood and suicidal ideas. The patient is not nervous/anxious. Visit Vitals BP 131/89 (BP Location: Right arm, Patient Position: Sitting, BP Cuff Size: Adult) Pulse 77 Temp 97.5 ??F (36.4 ??C) (Temporal) Resp 20 Ht 5' 11 (1.803 m) Wt 217 lb 6.4 oz (98.6 kg) SpO2 98% BMI 30.32 kg/m?? Smoking Status Never BSA 2.22 m?? Physical Exam Vitals reviewed. Constitutional: Appearance: Normal appearance. HENT: Head: Atraumatic. Right Ear: External ear normal. Left Ear: External ear normal. Cardiovascular: Rate and Rhythm: Normal rate and regular rhythm. Pulmonary: Effort: Pulmonary effort is normal. Breath sounds: Normal breath sounds. Neurological: Mental Status: He is alert and oriented to person, place, and time. Psychiatric: Mood and Affect: Mood normal. Behavior: Behavior normal. Problem List Items Addressed This Visit Nervous Daytime sleepiness Current Assessment & Plan - Excess sleep: 2-3 nap during day plus 8-10 hours per night and still does not feel well rested - Plan: labs for eval of thyroid, blood counts, iron levels, and routine labs. Hospital based sleepstudy ordered for further evaluation. Relevant Orders Polysomnography Digestive Right inguinal hernia - Primary Overview CT abd/pelvis Jun 2024: Small fat and fluid-containing right inguinal hernia. Referral to Surgery placed 08/26/24 ED precautions Relevant Orders Referral to General Surgery Other Visit Diagnoses Healthcare maintenance Relevant Orders Lipid Panel, Standard (Completed) Hemoglobin A1c (Completed) TSH with Reflex to Free T4 (Completed) Comprehensive Metabolic Panel (Completed) CBC auto differential (Completed) Chlamydia/N. Gonorrhoeae RNA, TMA, Urogenitial Hepatitis C Viral RNA, Quantitative, Real-Time PCR RPR (Monitor) with Reflex to Titer HIV-1/2 Antigen and Antibodies, Fourth Generation, with Reflexes (Completed) Iron And Total Iron Binding Capacity (Completed) Ferritin (Completed) Hepatitis B Core Antibody, Total (Completed) Hepatitis B Surface Antibody, Qualitative (Completed) Hepatitis B surface antigen, EIA (Completed) Vitamin D, 25-Hydroxy, Total, Immunoassay (Completed) Witnessed episode of apnea Relevant Orders Polysomnography Snoring Relevant Orders Polysomnography Follow up: 3 months, sooner as needed documented in this encounter Miscellaneous Notes * Assessment & Plan Note - CHRISTI Busch - 08/26/2024 3:16 PM ESTAssociated Problem(s): Daytime sleepiness - Excess sleep: 2-3 nap during day plus 8-10 hours per night and still does not feel well rested - Plan: labs for eval of thyroid, blood counts, iron levels, and routine labs. Hospital based sleepstudy ordered for further evaluation. documented in this encounter Plan of Treatment Scheduled Orders Name Type Priority Associated Diagnoses Orde r Schedule Polysomnography Sleep Center Routine Daytime sleepiness Witnessed episode of apnea Snoring Expected: 08/26/2024 (Approximate), Expires: 08/26/2025 Scheduled Referrals Name Type Priority Associated Diagnoses Orde r Schedule Referral to General Surgery Outpatient Referral Routine Right inguinal hernia Expected: 08/26/2024 (Approximate), Expires: 08/26/2025 documented as of this encounter Procedures Procedure Name Priority Date/Time Associated Diagnosis Comments VITAMIN D,25-OH,TOTAL,IA Routine 08/26/2024 11:14 AM EST Healthcare maintenance TSH W/REFLEX TO FT4 Routine 08/26/2024 1 1:14 AM EST Healthcare maintenance HEPATITIS C VIRAL [...] Routine 08/26/2024 11:14 AM EST Healthcare maintenance HEMOGLOBIN A1C Routine 08/26/2024 11:14 AM EST Healthcare maintenance FERRITIN Routine 08/26/2024 11:14 AM EST Healthcare maintenance LIPID PANEL, STANDARD Routine 08/26/2024 11:14 AM EST Healthcare maintenance COMPREHENSIVE METABOLIC PANEL Routine 08/26/2024 11:14 AM EST Healthcare maintenance documented in this encounter Results * Vitamin D, 25-Hydroxy, Total, Immunoassay (08/26/2024 11:14 AM EST) Vitamin D 25-OH Total 42.2 >30 ng/mL [facility] Comment:Health Based Referen ce Values*< 20 ng/mL Egfgbttrt33-01 ng/mL Insufficient> 30 ng/mL Sufficient*Lawson ECHEVARRIA. N [...] 08/26/2024 1:05 PM EST us Cami Escamilla [employer] LAB BLOOD ORDERABLES Final Res ult [facility] [address] [place] [phone] * Hepatitis B surface antigen, EIA (08/26/2024 11:14 AM EST) Pathologist [facility] Hepatitis B Surface Ag Negative Negative [facility] Blood Venous blood specimen / Unknown 08/26/2024 11:14 AM EST 08/26/2024 1:05 PM EST Cami Escamilla [employer] LAB BLOOD ORDERABLES Final Res ult Performing Organization Address City/[facility] Co de Phone Number [facility] [address] [place] [phone] * Hepatitis B Surface Antibody, Qualitative (08/26/2024 11:14 AM EST) Pathologist [facility] ~Hepatitis B Surface Antibody NONREACTIVE Nonreactive [facility] Comment:Nonreactive: < 8.00 mIU/mL Blood Venous blood specimen / Unknown 08/26/2024 11:14 AM EST 08/26/2024 1:05 PM EST Cami Escamilla [facility] LAB BLOOD ORDERABLES Final Res ult Performing Organization Address [facility] Phone Number [facility] [address] [place] [phone] * Hepatitis B Core Antibody, Total (08/26/2024 11:14 AM EST) Pathologist [facility] Hepatitis B Core Antibody Nonreactive Nonreactive [facility] Blood Venous blood specimen / Unknown 08/26/2024 11:14 AM EST 08/26/2024 1:05 PM EST Cami Escamilla [facility] LAB BLOOD ORDERABLES Final Res ult Performing Organization Address [facility] Phone Number [facility] [address] [place] [phone] * (ABNORMAL) Ferritin (08/26/2024 11:14 AM EST) Pathologist [facility] Ferritin 300(H) 20 - 250 ng/mL [facility] Blood Venous blood specimen / Unknown 08/26/2024 11:14 AM EST 08/26/2024 1:05 PM EST us Cami Escamilla [employer] LAB BLOOD ORDERABLES Final Res ult Performing Organization Address [facility] Co de Phone Number [facility] [address] [place] [phone] * Iron And Total Iron Binding Capacity (08/26/2024 11:14 AM EST) Iron 125 45 - 160 mcg/dL [facility] Total Iron Binding Capacity 304 228 - 428 mcg/dL [facility] Percent Iron Saturation 41 15 - 50 % [facility] Unsaturated Iron Binding 179 ug/dL [facility] Blood Venous blood specimen / Unknown 08/26/2024 11:14 AM EST 08/26/2024 1:05 PM EST Cami Escamilla [employer] LAB BLOOD ORDERABLES Final Res ult Performing Organization Address [facility] Phone Number [facility] [address] [place] [phone] * HIV-1/2 Antigen and Antibodies, Fourth Generation, with Reflexes (08/26/2024 11:14 AM EST) HIV AB/AG Nonreactive Nonreactive [facility] Comment:HIV-1 p24 Ag and/or HIV-1/HIV-2 Ab not detected.A test result that is nonreactive does not exclude thepossibility of exposure to or infection with HIV-1 and/orHIV-2. Nonreactive results in this assay for individualswith prior exposure to HIV-1 and/or HIV-2 may be due toantigen and antibody levels that are below the limit ofdetection of this assay.The Catglobe HIV Ag/Ab Combo assay result andsupplemental assay results should be interpreted inconjunction with the patient's clinical presentation,history and other laboratory results. If the results areinconsistent with clinical evidence, additional testing issuggested to confirm the result. Blood Venous blood specimen / Unknown 08/26/2024 11:14 AM EST 08/26/2024 1:05 PM EST Cami Escamilla [facility] LAB BLOOD ORDERABLES Final Res ult Performing Organization Address [facility] Co de Phone Number [facility] [address] [place] [phone] * RPR (Monitor) with Reflex to??Titer (08/26/2024 11:14 AM EST) RPR (Monitor) w/Refl Titer NON-REACTI VE NON-REACT MASHA [facility] Comment:THIS TEST WAS PERFOR MED AT:[facility] [place] [id number] GREGORY MD Rapid Plasma Reagin Ab Titer TNP [facility] Blood Venous blood specimen / Unknown 08/26/2024 11:14 AM EST 08/26/2024 1:05 PM EST Cami Escamilla [facility] LAB BLOOD ORDERABLES Final Res ult Performing Organization Address [facility] de Phone Number [facility] [address] [place] [phone] * Hepatitis C Viral RNA, Quantitative, Real-Time PCR (08/26/2024 11:14 AM EST) Hepatitis C Viral Load <15 NOT DETECTED NOT DETECTED IU/mL [facility] HCV Log PCR <1.18 NOT DETECTED NOT DETECTED Log IU/mL [facility] Comment:For additional infor clint, please refer tohttp://education.[employer]/faq/MQG02l8(This link is being provided for informational/educational purposes only.)THIS TEST WAS PERFORMED AT:[email or web address] [address] [id number] GREGORY MD Blood 08/26/2024 11:1 4 AM EST 08/26/2024 1:05 PM EST Cami Escamilla [facility] LAB BLOOD ORDERABLES Final Res ult [facility] [address] [place] [address] [phone] * Chlamydia/N. Gonorrhoeae RNA, TMA, Urogenitial (08/26/2024 11:14 AM EST) CT PCR NOT DETECTED Not Detect. [facility] Comment:A not detected test result [...] psychologicalconsequences. NG PCR NOT DETECTED Not Detect. [facility] Comment:A not detected test result [...] AM EST 08/26/2024 1:00 PM EST Narrative [facility] - 08/26/2024 5:14 PM EST Urine Cami Escamilla [employer] LAB MICROBIOLOGY - GENERAL ORD ERABLES Final Result [facility] [address] [place] [phone] * (ABNORMAL) CBC auto differential (08/26/2024 11:14 AM EST) White Blood Count 6.4 4.8 - 10.8 X10*3/uL [facility] Red Blood Count 5.43 4.60 - 5.80 X10*6/uL [facility] Hemoglobin 16.2 14.0 - 18.0 g/dl [facility] Hematocrit 46.6 42.0 - 52.0 % [facility] Mean Corpuscular Volume 85.8 80.0 - 98.0 fL [facility] Mean Corpuscular Hemoglobin 29.8 27.0 - 33.0 pg [facility] Mean Corpuscular HGB Conc 34.8 31.0 - 36.0 g/dl [facility] Red Cell Distribution Width 12.2 11.0 - 16.0 % [facility] Platelet Count 284 160 - 400 X10*3/uL [facility] Mean Platelet Volume 8.8(L) 9.4 - 12.4 fL [facility] Neutrophils Percent Auto 49.0 45 - 73 % [facility] Imm Gran Pct Auto 0.3 0.0 - 0.4 % [facility] Lymphocytes Percent Auto 37.6 20 - 40 % [facility] Monocytes Percent Auto 9.4 2 - 11 % [facility] Eosinophils Percent Auto 2.8 0 - 4 % [facility] Basophils Percent Auto 0.9 0 - 2 % [facility] NRBC Pct Auto 0.0 0.0 - 0.2 /100WBC [facility] Neutrophils Absolute Auto 3.1 2.0 - 8.3 x10*3/uL [facility] Imm Gran Abs Auto 0.02 0.00 - 0.03 X10*3/uL [facility] Lymphocytes Absolute Auto 2.4 1.2 - 4.9 X10*3/uL [facility] Monocytes Absolute Auto 0.6 0.1 - 1.2 X10*3/uL [facility] Eosinophils Absolute Auto 0.2 0.0 - 0.4 X10*3/uL [facility] Basophils Absolute Auto 0.1 0.0 - 0.2 X10*3/uL [facility] NRBC Abs Auto 0.000 0.0 - 0.012 X10*3/uL [facility] Blood Venous blood specimen / Unknown 08/26/2024 11:14 AM EST 08/26/2024 1:05 PM EST us Cami Escamilla [employer] LAB BLOOD ORDERABLES Final Res ult [facility] [address] [place], [place] [phone] * (ABNORMAL) Comprehensive Metabolic Panel (08/26/2024 11:14 AM EST) Sodium 144 135 - 145 mmol/L [facility] Potassium 4.2 3.3 - 5.1 mmol/L [facility] Chloride 106 96 - 108 mmol/L [facility] Carbon Dioxide 29 22 - 29 mmol/L [facility] Anion Gap 13 12 - 20 [facility] Urea Nitrogen (BUN) 11 9 - 16 mg/dL [facility] Creatinine, Serum 0.83 0.5 - 1.4 mg/dL [facility] Estimated Glomerular Filt Rate >60 [facility] Comment:Chronic Kidney Disea se: Estimated GFR < 60 mL/min/1.40s7Ixulss Kidney Disease: Estimated GFR < 15 mL/min/1.73m2 Glucose 96 60 - 115 mg/dL [facility] Calcium 9.6 8.4 - 10.2 mg/dL [facility] Bilirubin, Total 0.7 0.0 - 1.0 mg/dL [facility] Aspartate Amino Transferase 20 5 - 37 U/L [facility] Alanine Aminotransferase 29 0 - 40 U/L [facility] Total Protein 8.1(H) 6.5 - 8.0 g/dL [facility] Albumin Level 4.7 3.5 - 5.0 g/dL [facility] Alkaline Phosphatase 41 39 - 117 U/L [facility] Blood Venous blood specimen / Unknown 08/26/2024 11:14 AM EST 08/26/2024 1:05 PM EST Cami Escamilla [facility] LAB BLOOD ORDERABLES Final Res ult Performing Organization Address [facility] Co de Phone Number [facility] [address] [place] [phone] * TSH with Reflex to Free T4 (08/26/2024 11:14 AM EST) TSH reflex Free T4 1.24 0.32 - 4.0 uIU/mL [facility] Blood 08/26/2024 11:1 4 AM EST 08/26/2024 1:05 PM EST Cami Escamilla [facility] LAB BLOOD ORDERABLES Final Res ult Performing Organization Address [facility] Co de Phone Number [facility] [address] [place] [phone] * Hemoglobin A1c (08/26/2024 11:14 AM EST) Hemoglobin A1c 5.2 <6.0 % [facility] Comment:Hemoglobin A1C Refer ence Range Adults: 4.8 - 6.0 % Non diabetic: < 6.0 % Goal: < 7.0 %Additional Action Suggested: > 8.0 %Note: Hemoglobin A1c results are invalid for patients with abnormal amounts of HbF. Blood transfusions may impact the HbA1c concentration in the patient sample. Estimated Average Glucose 103 mg/dL [facility] Comment:eAG = Estimated ave rage glucose which is %A1C expressed asaverage glucose, using the formula of the I8Z-RamdpfbDpscceh Glucose study (ADAG), Diabetes Care, Vol.31,#8,Mar. 2007 Blood Venous blood specimen / Unknown 08/26/2024 11:14 AM EST 08/26/2024 1:05 PM EST Cami Escamilla [facility] LAB BLOOD ORDERABLES Final Res ult [facility] [address] [place] [address] [phone] * (ABNORMAL) Lipid Panel, Standard (08/26/2024 11:14 AM EST) Triglycerides 229(H) <150 mg/dL [facility] Comment:Desirable Triglyceri de: less than 150 mg/dLBorderline High Triglyceride 150-199 mg/dLHigh Triglyceride: 200-499 mg/dLVery High Triglyceride: greater than or equal to 5OO mg/dL Cholesterol 220(H) <200 mg/dL [facility] Comment:Desirable Cholestero l: less than 200 mg/dLBorderline High Cholesterol: 200-239 mg/dLHigh Cholesterol: greater than 239 mg/dL LDL Cholesterol Calculated 126(H) <100 mg/dL [facility] Comment:Desirable LDL: less than 100 mg/dLNear Optimal/Above Optimal LDL: 110- 129 mg/dLBorderline High LDL: 130-159 mg/dLHigh LDL: 160-189 mg/dLVery High LDL: greater than or equal to 190 mg/dL HDL Cholesterol 49 >40 mg/dL [facility] Comment:Desirable HDL: great er than 40 mg/dL Note: This HDL assay may give artificially low results in patients with liver disease. Blood Venous blood specimen / Unknown 08/26/2024 11:14 AM EST 08/26/2024 1:05 PM EST Cami Escamilla [facility] LAB BLOOD ORDERABLES Final Res ult [facility] [address] [place] [phone] documented in this encounter Visit Diagnoses Diagnosis Right inguinal hernia- Primary Inguinal hernia without mention of obstruction or gangrene, unilateral or unspecified, (not specified as recurrent) Healthcare maintenance Daytime sleepiness Witnessed episode of apnea Snoring Other dyspnea and respiratory abnormality Dietary counseling Dietary surveillance and counseling Exercise counseling documented in this encounter Additional Health Concerns Assessment Noted Time PHQ-9 Depression Total Score: 0 01/29/20 24 11:38 AM EDT documented as of this encounter Care Teams Public Safety Police Relationship Specialty Start Date End Date Cami Escamilla FNP [address] [place] [phone] PCP - General Family Medicine 02/09/22 documented as of this encounter
== END ==
LOC: HO.SL 20:30
PROVIDERS: Visit Provider Registered Nurse
DX: Z13.89 Encounter for screening for other disorder (principal)

== ENCOUNTER 2024-09-19 10:09 | Outpatient (REF) | payer MEDICAID, SELFPAY ==
[2024-09-19 10:27] LABS: MANUAL DIFF FLAG NO
[2024-09-19 10:35] LABS: Basophils Absolute Auto 0.1 X10*3/uL (0.0-0.2); Basophils Percent Auto 1.1 % (0-2); Eosinophils Absolute Auto 0.2 X10*3/uL (0.0-0.4); Eosinophils Percent Auto 2.6 % (0-4); Hematocrit 43.9 % (42.0-52.0); Hemoglobin 15.7 g/dl (14.0-18.0); Imm Gran Abs Auto 0.02 X10*3/uL (0.00-0.03); Imm Gran Pct Auto 0.3 % (0.0-0.4); Lymphocytes Absolute Auto 2.2 X10*3/uL (1.2-4.9); Lymphocytes Percent Auto 35.9 % (20-40); Mean Corpuscular HGB Conc 35.8 g/dl (31.0-36.0); Mean Corpuscular Hemoglobin 29.8 pg (27.0-33.0); Mean Corpuscular Volume 83.3 fL (80.0-98.0); Mean Platelet Volume 8.6 fL (9.4-12.4); Monocytes Absolute Auto 0.5 X10*3/uL (0.1-1.2); Monocytes Percent Auto 8.5 % (2-11); Neutrophils Absolute Auto 3.2 x10*3/uL (2.0-8.3); Neutrophils Percent Auto 51.6 % (45-73); Platelet Count 283 X10*3/uL (160-400); Red Blood Count 5.27 X10*6/uL (4.60-5.80); White Blood Count 6.2 X10*3/uL (4.8-10.8)
[2024-09-19 10:45] LABS: Estimated Average Glucose 97 mg/dL; Hemoglobin A1C 130.1076 umol/L; Total Hemoglobin (HGBA1C) 4115.7356 umol/L
[2024-09-19 11:09] LABS: Alanine Aminotransferase 26 U/L (0-40); Albumin Level 4.5 g/dL (3.5-5.0); Alkaline Phosphatase 44 U/L (39-117); Anion Gap 13 (12-20); Aspartate Amino Transferase 17 U/L (5-37); Bilirubin Total 0.7 mg/dL (0.0-1.0); Blood Urea Nitrogen 12 mg/dL (9-16); Calcium 9.1 mg/dL (8.4-10.2); Carbon Dioxide 24 mmol/L (22-29); Chloride 108 mmol/L (96-108); Cholesterol 170 mg/dL (<200); Estimated Glomerular Filt Rate > 60; Glucose Random 97 mg/dL (60-115); HDL Cholesterol 42 mg/dL (>40); Iron 112 mcg/dL (45-160); LDL Cholesterol Calculated 100 mg/dL (<100); Percent Iron Saturation 40 % (15-50); Potassium 3.9 mmol/L (3.3-5.1); Sodium 141 mmol/L (135-145); Total Iron Binding Capacity 281 mcg/dL (228-428); Triglycerides 142 mg/dL (<150); Unsaturated Iron Binding 169 ug/dL
[2024-09-19 11:23] LABS: HBS Num1 0.99 mIU/mL (0-7.99); HBsAGNum1 0.37 S/CO (0.00-0.99); HIV AB/AG Nonreactive (Nonreactive); HIV Num 1 0.05 S/CO (0.00-0.99); Hepatitis B Core Antibody Nonreactive (Nonreactive); Hepatitis B Surface Antigen Negative (Negative); ~Hepatitis B Surface Antibody NONREACTIVE (Nonreactive)
[2024-09-19 11:33] LABS: Ferritin 239 ng/mL (20-250); TSH reflex Free T4 0.81 uIU/mL (0.32-4.0)
[2024-09-21 21:54] LABS: HCV Log PCR <1.18 NOT DETECTED Log IU/mL (NOT DETECTED); HepC Viral Load <15 NOT DETECTED IU/mL (NOT DETECTED)
[2024-09-22 15:44] LABS: RPR Rapid Plasma Reagin NON-REACTIVE (NON-REACTIVE)
== END 2024-09-19 10:10 | disposition home or self-care (01) ==
LOC: HO.LAB 10:09
PROVIDERS: PCP Registered Nurse; Visit Provider Registered Nurse
DX: Z00.00 Encounter for general adult medical examination without abnormal findings (principal); R79.89 Other specified abnormal findings of blood chemistry
CPT/HCPCS: 36415; 80053; 80061; 82728; 83036; 83540; 84443; 85025; 86592; 86704; 86706; 87340; 87389; 87522

== ENCOUNTER 2024-09-28 06:56 | Emergency (ER) | payer OTHER, SELFPAY ==
[2024-09-28 07:00] VITALS: BP 125/84; PULSE 84; RESP 18; TEMP 36.9; O2SAT 100; BMI 30.3
--- OUTSIDE RECORDS SUMMARY | 2024-09-28 07:26 | XMS_ITS | Encounter Summary ---
Author Organization [employer] Address [address] [facility] 7t [place] [address] Care Team Providers Care Sound Cutter Name Role Phone Cami Escamilla Primary Care Provider Reason for Visit * Reason Onset Date Comments Nurse Triage 08/05/2024 Encounter Details Date Type Department Care Team ([facility] st Contact Info) Description 08/05/2024 Telephone [facility] MEDICINE [address] [place] [address] Cami Escamilla FNP [address] [place] [address] Nurse Triage Social History Tobacco Use Types [...] documented as of this encounter Care Teams Sound Cutter Relationship Specialty Start Date End Date Cami Escamilla FNP [address] [place] [address] PCP - General Family Medicine 02/09/22 documented as of this encounter
--- OUTSIDE RECORDS SUMMARY | 2024-09-28 07:26 | XMS_ITS | Clinical Summary ---
Author Organization [employer] Address [address] [facility] 7t [place] [address] Care Team Providers Care Relay Worker Name Role Phone Cami Ecsamilla PORTER BAGGAGE Primary Care Provider [phone] Allergies No known active allergies Medications Blood [...] Encounters Date Type Department Care Team Description 09/21/2024 Telephone [facility] [address] [place] [phone] Nicole Pierre, RN Results 09/11/[address] [address] Evelin Butt, RN Results 09/11/2024 Orders Only [facility] [address] [place], [place] [phone] Cami Escamilla FNP Elevated ferritin (Primary Dx) 08/28/2024 Telephone [facility] [address] [place], [place] [phone] Cami Escamilla FNP 08/26/2024 10:15 AM EST Office Visit [address] [address] Cami Escamilla FNP Right inguinal hernia (Primary Dx); Healthcare maintenance; Daytime sleepiness; Witnessed episode of apnea; Snoring; Dietary counseling; Exercise counseling 08/26/2024 Travel 08/05/[address] [phone] Cami Escamilla FNP ER Follow-up 08/05/[address] [phone] Cami Escamilla FNP Nurse Triage from Last [...] 1-dose 75+ series) 2070 HIV Screening Completed 09/19/2024, 08/26/2024 Hepatitis C Screening Completed 09/19/2024 , 08/26/2024 HIB Vaccines Aged Out No longer [...] Procedure Name Priority Date/Time Associated Diagnosis Comments CBC WITH AUTO DIFFERENTIAL Routine 09/19/2024 10:22 AM EST Elevated ferritin IRON AND TOTAL IRON BINDING CAPACITY Routine 09/19/2024 10:22 AM EST Elevated ferritin FERRITIN Routine 09/19/2024 10:22 AM EST Elevated ferritin HEPATITIS B SURFACE ANTIGEN, EIA Routine 09/19/2024 10:22 AM EST Routine health maintenance HIV 1/2 ANTIGEN/ANTIBODY, FOURTH GENERATION W/RFL Routine 09/19/2024 10:22 AM EST Routine health maintenance RPR (MONITOR) W/REFL TITER Routine 09/19/2024 10:22 AM EST Routine health maintenance HEPATITIS C VIRAL RNA, QUANTITATIVE, REAL-TIME PCR Routine 09/19/2024 10:22 AM EST Routine health maintenance HEPATITIS B SURFACE ANTIBODY, QUALITATIVE Routine 09/19/2024 10:22 AM EST Routine health maintenance HEPATITIS B CORE AB TOTAL Routine 09/19/2024 10:22 AM EST Routine health maintenance COMPREHENSIVE METABOLIC PANEL Routine 09/19/2024 10:22 AM EST Routine health maintenance TSH W/REFLEX TO FT4 Routine 09/19/2024 1 0:22 AM EST Routine health maintenance HEMOGLOBIN A1C Routine 09/19/2024 10:22 AM EST Routine health maintenance LIPID PANEL, STANDARD Routine 09/19/2024 10:22 AM EST Routine health maintenance VITAMIN D,25-OH,TOTAL,IA Routine 08/26/2024 11:14 AM EST [...] Recently Relevant to Health Maintenance Results * TSH with Reflex to Free T4 (09/19/2024 10:22 AM EST) Only the most recent of2 resultswithin the time period is included. TSH reflex Free T4 0.81 0.32 - 4.0 uIU/mL [facility] Blood 09/19/2024 10:2 2 AM EST 09/19/2024 10:25 AM EST Cami Escamilla [facility] BLOOD ORDERABLES Final Res ult [facility] [address] [place] [phone] * Hepatitis C Viral RNA, Quantitative, Real-Time PCR (09/19/2024 10:22 AM EST) Only the most recent of2 resultswithin the time period is included. Hepatitis C Viral Load <15 NOT DETECTED NOT DETECTED IU/mL [facility] HCV Log PCR <1.18 NOT DETECTED NOT DETECTED Log IU/mL [facility] Comment:For additional infor mation, please refer [email or web address].AlmondNet/faq/FOY11l5(This link is being provided for informational/educational purposes only.)THIS TEST WAS PERFORMED AT:[facility] [place] [phone] GREGORY MD Blood 09/19/2024 10:2 2 AM EST 09/19/2024 10:25 AM EST us Cami Escamilla [facility] BLOOD ORDERABLES Final Res ult [facility] [address] [place], [place] [phone] * (ABNORMAL) CBC auto differential (09/19/2024 10:22 AM EST) Only the most recent of2 resultswithin the time period is included. White Blood Count 6.2 4.8 - 10.8 X10*3/uL [facility] Red Blood Count 5.27 4.60 - 5.80 X10*6/uL [facility] Hemoglobin 15.7 14.0 - 18.0 g/dl [facility] Hematocrit 43.9 42.0 - 52.0 % [facility] Mean Corpuscular Volume 83.3 80.0 - 98.0 fL [facility] Mean Corpuscular Hemoglobin 29.8 27.0 - 33.0 pg [facility] Mean Corpuscular HGB Conc 35.8 31.0 - 36.0 g/dl [facility] Red Cell Distribution Width 12.0 11.0 - 16.0 % [facility] Platelet Count 283 160 - 400 X10*3/uL [facility] Mean Platelet Volume 8.6(L) 9.4 - 12.4 fL [facility] Neutrophils Percent Auto 51.6 45 - 73 % [facility] Imm Gran Pct Auto 0.3 0.0 - 0.4 % [facility] Lymphocytes Percent Auto 35.9 20 - 40 % [facility] Monocytes Percent Auto 8.5 2 - 11 % [facility] Eosinophils Percent Auto 2.6 0 - 4 % [facility] Basophils Percent Auto 1.1 0 - 2 % [facility] NRBC Pct Auto 0.0 0.0 - 0.2 /100WBC [facility] Neutrophils Absolute Auto 3.2 2.0 - 8.3 x10*3/uL [facility] Imm Gran Abs Auto 0.02 0.00 - 0.03 X10*3/uL [facility] Lymphocytes Absolute Auto 2.2 1.2 - 4.9 X10*3/uL [facility] Monocytes Absolute Auto 0.5 0.1 - 1.2 X10*3/uL [facility] Eosinophils Absolute Auto 0.2 0.0 - 0.4 X10*3/uL [facility] Basophils Absolute Auto 0.1 0.0 - 0.2 X10*3/uL [facility] NRBC Abs Auto 0.000 0.0 - 0.012 X10*3/uL [facility] Blood Venous blood specimen / Unknown 09/19/2024 10:22 AM EST 09/19/2024 10:25 AM EST Cami [employer] [facility] BLOOD ORDERABLES Final Res ult Performing Organization Address [facility] de Phone Number [facility] [address] [place] [phone] * Iron And Total Iron Binding Capacity (09/19/2024 10:22 AM EST) Only the most recent of2 resultswithin the time period is included. Iron 112 45 - 160 mcg/dL [facility] Total Iron Binding Capacity 281 228 - 428 mcg/dL [facility] Percent Iron Saturation 40 15 - 50 % [facility] Unsaturated Iron Binding 169 ug/dL [facility] Blood Venous blood specimen / Unknown 09/19/2024 10:22 AM EST 09/19/2024 10:25 AM EST Cami [employer] [facility] BLOOD ORDERABLES Final Res ult Performing Organization Address [facility] de Phone Number [facility] [address] [place] [phone] * Hepatitis B surface antigen, EIA (09/19/2024 10:22 AM EST) Only the most recent of2 resultswithin the time period is included. Hepatitis B Surface Ag Negative Negative [facility] Blood Venous blood specimen / Unknown 09/19/2024 10:22 AM EST 09/19/2024 10:25 AM EST Cami Escamilla [facility] BLOOD ORDERABLES Final Res ult Performing Organization Address [facility] Co de Phone Number [facility] [address] [place] [address] [phone] * Hepatitis B Core Antibody, Total (09/19/2024 10:22 AM EST) Only the most recent of2 resultswithin the time period is included. Hepatitis B Core Antibody Nonreactive Nonreactive [facility] Blood Venous blood specimen / Unknown 09/19/2024 10:22 AM EST 09/19/2024 10:25 AM EST Cami Escamilla [facility] BLOOD ORDERABLES Final Res ult Performing Organization Address [facility] Phone Number [facility] [address] [place] [phone] * RPR (Monitor) with Reflex to??Titer (09/19/2024 10:22 AM EST) Only the most recent of2 resultswithin the time period is included. RPR (Monitor) w/Refl Titer NON-REACTI VE NON-REACT MASHA [facility] Comment:THIS TEST WAS PERFOR MED AT:[facility] [place] [phone] GREGORY MD Rapid Plasma Reagin Ab Titer TNP [facility] Blood Venous blood specimen / Unknown 09/19/2024 10:22 AM EST 09/19/2024 10:25 AM EST Cami Escamilla [facility] BLOOD ORDERABLES Final Res ult Performing Organization Address [facility] de Phone Number [facility] [address] [place] [phone] * HIV-1/2 Antigen and Antibodies, Fourth Generation, with Reflexes (09/19/2024 10:22 AM EST) Only the most recent of2 resultswithin the time period is included. Pathologist [facility] HIV AB/AG Nonreactive Nonreactive [facility] Comment:HIV-1 p24 Ag and/or HIV-1/HIV-2 Ab not detected.A test result that is nonreactive does not exclude thepossibility of exposure to or infection with HIV-1 and/orHIV-2. Nonreactive results in this assay for individualswith prior exposure to HIV-1 and/or HIV-2 may be due toantigen and antibody levels that are below the limit ofdetection of this assay.The vivio HIV Ag/Ab Combo assay result andsupplemental assay results should be interpreted inconjunction with the patient's clinical presentation,history and other laboratory results. If the results areinconsistent with clinical evidence, additional testing issuggested to confirm the result. Blood Venous blood specimen / Unknown 09/19/2024 10:22 AM EST 09/19/2024 10:25 AM EST Cami Escamilla [facility] BLOOD ORDERABLES Final Res ult Performing Organization Address [facility] Co de Phone Number [facility] [address] [place] [phone] * Hepatitis B Surface Antibody, Qualitative (09/19/2024 10:22 AM EST) Only the most recent of2 resultswithin the time period is included. Pathologist [facility] ~Hepatitis B Surface Antibody NONREACTIVE Nonreactive [facility] Comment:Nonreactive: < 8.00 mIU/mL Blood Venous blood specimen / Unknown 09/19/2024 10:22 AM EST 09/19/2024 10:25 AM EST Cam[employer] [facility] BLOOD ORDERABLES Final Res ult Performing Organization Address [facility] Co de Phone Number [facility] [address] [place] [phone] * Hemoglobin A1c (09/19/2024 10:22 AM EST) Only the most recent of2 resultswithin the time period is included. Hemoglobin A1c 5.0 <6.0 % [facility] Comment:Hemoglobin A1C Refer ence Range Adults: 4.8 - 6.0 % Non diabetic: < 6.0 % Goal: < 7.0 %Additional Action Suggested: > 8.0 %Note: Hemoglobin A1c results are invalid for patients with abnormal amounts of HbF. Blood transfusions may impact the HbA1c concentration in the patient sample. Estimated Average Glucose 97 mg/dL [facility] Comment:eAG = Estimated ave rage glucose which is %A1C expressed asaverage glucose, using the formula of the T7P-KikndxiUrigdzf Glucose study (ADAG), Diabetes Care, Vol.31,#8,2007 Blood Venous blood specimen / Unknown 09/19/2024 10:22 AM EST 09/19/2024 10:25 AM EST Cami Escamilla [employer] [facility] BLOOD ORDERABLES Final Res ult [facility] [address] [place] [phone] * Ferritin (09/19/2024 10:22 AM EST) Only the most recent of2 resultswithin the time period is included. Ferritin 239 20 - 250 ng/mL [facility] Blood Venous blood specimen / Unknown 09/19/2024 10:22 AM EST 09/19/2024 10:25 AM EST Cami [employer]al[employer]wan [facility] BLOOD ORDERABLES Final Res ult [facility] [address] [place] [phone] * (ABNORMAL) Lipid Panel, Standard (09/19/2024 10:22 AM EST) Only the most recent of2 resultswithin the time period is included. Triglycerides 142 <150 mg/dL [facility] Comment:Desirable Triglyceri de: less than 150 mg/dLBorderline High Triglyceride 150-199 mg/dLHigh Triglyceride: 200-499 mg/dLVery High Triglyceride: greater than or equal to 5OO mg/dL Cholesterol 170 <200 mg/dL [facility] Comment:Desirable Cholestero l: less than 200 mg/dLBorderline High Cholesterol: 200-239 mg/dLHigh Cholesterol: greater than 239 mg/dL LDL Cholesterol Calculated 100(H) <100 mg/dL [facility] Comment:Desirable LDL: less than 100 mg/dLNear Optimal/Above Optimal LDL: 110- 129 mg/dLBorderline High LDL: 130-159 mg/dLHigh LDL: 160-189 mg/dLVery High LDL: greater than or equal to 190 mg/dL HDL Cholesterol 42 >40 mg/dL [facility] Comment:Desirable HDL: great er than 40 mg/dL Note: This HDL assay may give artificially low results in patients with liver disease. Blood Venous blood specimen / Unknown 09/19/2024 10:22 AM EST 09/19/2024 10:25 AM EST us Cami Escamilla [facility] BLOOD ORDERABLES Final Res ult [facility] [address] [place] [phone] * Comprehensive Metabolic Panel (09/19/2024 10:22 AM EST) Only the most recent of2 resultswithin the time period is included. Sodium 141 135 - 145 mmol/L [facility] Potassium 3.9 3.3 - 5.1 mmol/L [facility] Chloride 108 96 - 108 mmol/L [facility] Carbon Dioxide 24 22 - 29 mmol/L [facility] Anion Gap 13 12 - 20 [facility] Urea Nitrogen (BUN) 12 9 - 16 mg/dL [facility] Creatinine, Serum 0.76 0.5 - 1.4 mg/dL [facility] Estimated Glomerular Filt Rate >60 [facility] Comment:Chronic Kidney Disea se: Estimated GFR < 60 mL/min/1.25u8Dgulke Kidney Disease: Estimated GFR < 15 mL/min/1.73m2 Glucose 97 60 - 115 mg/dL [facility] Calcium 9.1 8.4 - 10.2 mg/dL [facility] Bilirubin, Total 0.7 0.0 - 1.0 mg/dL [facility] Aspartate Amino Transferase 17 5 - 37 U/L [facility] Alanine Aminotransferase 26 0 - 40 U/L [facility] Total Protein 8.0 6.5 - 8.0 g/dL [facility] Albumin Level 4.5 3.5 - 5.0 g/dL [facility] Alkaline Phosphatase 44 39 - 117 U/L [facility] Blood Venous blood specimen / Unknown 09/19/2024 10:22 AM EST 09/19/2024 10:25 AM EST us Cami Escamilla [employer] [facility] BLOOD ORDERABLES Final Res ult [facility] [address] [place] [phone] * Vitamin D, 25-Hydroxy, Total, Immunoassay (08/26/2024 11:14 AM EST) Vitamin D 25-OH Total 42.2 >30 ng/mL [facility] Comment:Health Based Referen ce Values*< 20 ng/mL [id number] ng/mL Insufficient> 30 ng/mL Sufficient*Lawson ECHEVARRIA. N [...] 08/26/2024 1:05 PM EST us Cami Escamilla [employer] [facility] BLOOD ORDERABLES Final Res ult [facility] [address] [place] [phone] * Chlamydia/N. Gonorrhoeae RNA, TMA, Urogenitial (08/26/2024 11:14 AM EST) CT PCR NOT DETECTED Not Detect. [facility] Comment:A not detected test result [...] psychologicalconsequences. NG PCR NOT DETECTED Not Detect. [facility] Comment:A not detected test result [...] AM EST 08/26/2024 1:00 PM EST Narrative [facility] - 08/26/2024 5:14 PM EST Urine Cmai Escamilla [facility] MICROBIOLOGY - GENERAL ORD ERABLES Final Result [facility] [address] [place] [phone] from Last 3 Months Insurance [facility] C3 DENTAL-[facility] MEDICAID STAND ADULT Care Teams Relay Worker Relationship Specialty Start Date End Date Cami Escamilla FNP [address] [place] [phone] PCP - General Family Medicine 02/09/22
--- OUTSIDE RECORDS SUMMARY | 2024-09-28 07:26 | XMS_ITS | Encounter Summary ---
Author Organization [employer] Address [address] [facility] [address]t [place] [address] Care Team Providers Care Test Grader Name Role Phone Cami Escamilla TOOL CRIB MANAGER Primary Care Provider [phone] Reason for Visit * Reason Onset Date Comments Results 09/11/2024 Encounter Details Date Type Department Care Team ([facility] st Contact Info) Description 09/11/2024 Telephone [facility] MEDICINE [address] [place] [address] Evelin Butt RN [address] [place] [address] Results Social History Tobacco Use Types Packs/Day [...] Advised to come to vaccine clinic at [facility] or can start at his next appt. [...] documented as of this encounter Care Teams Test Grader Relationship Specialty Start Date End Date Cami Escamilla FNP [address] [place] [address] PCP - General Family Medicine 02/09/22 documented as of this encounter
--- OUTSIDE RECORDS SUMMARY | 2024-09-28 07:26 | XMS_ITS | Encounter Summary ---
Author Organization [employer] Address [address] [facility] [address] [place] [address] Care Team Providers Care Family Consumer Science Teacher Name Role Phone Cami Escamilla EVAPORATOR HELPER Primary Care Provider [phone] Reason for Visit * Reason Onset Date Comments Results 09/21/2024 Encounter Details Date Type Department Care Team ([facility] st Contact Info) Description 09/21/2024 Telephone [facility] MED[facility]INE [address] [place] [address] Nicole Pierre RN Results Social History Tobacco Use Types Packs/Day [...] encounter Miscellaneous Notes * Telephone Encounter - Theodora Pierce RN - 09/21/2024 1:59 PM EST TC to patient via gummed tape press operator. Reviewed results and recommendations. Patient stated verbal understanding. Will FU as needed. * Telephone Encounter - Shadi Justice - 09/21/2024 12:10 PM EST Tc from pt returning call for results. * Telephone Encounter - Nicole Pierre RN - 09/21/2024 8:58 AM EST Telephone call placed to patient in regards to message below. No answer, left voicemail. Patient tocall as needed. * Telephone Encounter - Nicole Pierre RN - 09/21/2024 8:58 AM EST ----- Message from Cami Escamilla sent at 09/21/2024 5:57 AM EST ----- Please call Philip to let him know the good news that the repeat iron studies came back normal, and that his cholesterol levels improved compared to previous. Please encourage to continue with lifestyle interventions for HLD. Hep B non- immune, able to restart series. Thanks! documented in this encounter Plan of Treatment Not on file documented as of this encounter Visit Diagnoses Not on filedocumented in this encounter Additional Health Concerns Assessment Noted Time PHQ-9 Depression Total Score: 0 01/29/20 24 11:38 AM EDT documented as of this encounter Care Teams Family Consumer Science Teacher Relationship Specialty Start Date End Date Cami Escamilla FNP [address] [place] [phone] PCP - General Family Medicine 02/09/22 documented as of this encounter
--- OUTSIDE RECORDS SUMMARY | 2024-09-28 07:26 | XMS_ITS | Encounter Summary ---
Author Organization [employer] Address [address] [facility] [address] [place] [address] Care Team Providers Care Baggage Inspector Name Role Phone Kerryantwan Cami BARRAZA Primary Care Provider [phone] Encounter Details Date Type Department Care Team (Late st Contact Info) Description 09/11/2024 Orders Only [facility] [address], [place] [phone] Cami Escamilla FNP [address] [place], [place] [phone] Elevated ferritin (Primary Dx) Social History Tobacco [...] on file documented as of this encounter Procedures Procedure Name Priority Date/Time Associated Diagnosis Comments CBC WITH AUTO DIFFERENTIAL Routine 09/19/2024 10:22 AM EST Elevated ferritin IRON AND TOTAL IRON BINDING CAPACITY Routine 09/19/2024 10:22 AM EST Elevated ferritin FERRITIN Routine 09/19/2024 10:22 AM EST Elevated ferritin documented in this encounter Results * (ABNORMAL) CBC auto differential (09/19/2024 10:22 AM EST) White Blood Count 6.2 4.8 - 10.8 X10*3/uL [facility] Red Blood Count 5.27 4.60 - 5.80 X10*6/uL [facility] Hemoglobin 15.7 14.0 - 18.0 g/dl [facility] Hematocrit 43.9 42.0 - 52.0 % [facility] Mean Corpuscular Volume 83.3 80.0 - 98.0 fL [facility] Mean Corpuscular Hemoglobin 29.8 27.0 - 33.0 pg [facility] Mean Corpuscular HGB Conc 35.8 31.0 - 36.0 g/dl [facility] Red Cell Distribution Width 12.0 11.0 - 16.0 % [facility] Platelet Count 283 160 - 400 X10*3/uL [facility] Mean Platelet Volume 8.6(L) 9.4 - 12.4 fL [facility] Neutrophils Percent Auto 51.6 45 - 73 % [facility] Imm Gran Pct Auto 0.3 0.0 - 0.4 % [facility] Lymphocytes Percent Auto 35.9 20 - 40 % [facility] Monocytes Percent Auto 8.5 2 - 11 % [facility] Eosinophils Percent Auto 2.6 0 - 4 % [facility] Basophils Percent Auto 1.1 0 - 2 % [facility] NRBC Pct Auto 0.0 0.0 - 0.2 /100WBC [facility] Neutrophils Absolute Auto 3.2 2.0 - 8.3 x10*3/uL [facility] Imm Gran Abs Auto 0.02 0.00 - 0.03 X10*3/uL [facility] Lymphocytes Absolute Auto 2.2 1.2 - 4.9 X10*3/uL [facility] Monocytes Absolute Auto 0.5 0.1 - 1.2 X10*3/uL [facility] Eosinophils Absolute Auto 0.2 0.0 - 0.4 X10*3/uL [facility] Basophils Absolute Auto 0.1 0.0 - 0.2 X10*3/uL [facility] NRBC Abs Auto 0.000 0.0 - 0.012 X10*3/uL [facility] Blood Venous blood specimen / Unknown 09/19/2024 10:22 AM EST 09/19/2024 10:25 AM EST Cami Escamilla SOCIAL MEDIA MARKETING ANALYST LAB BLOOD ORDERABLES Final Res ult [facility] [address] [place] [phone] * Iron And Total Iron Binding Capacity (09/19/2024 10:22 AM EST) Iron 112 45 - 160 mcg/dL [facility] Total Iron Binding Capacity 281 228 - 428 mcg/dL [facility] Percent Iron Saturation 40 15 - 50 % [facility] Unsaturated Iron Binding 169 ug/dL [facility] Blood Venous blood specimen / Unknown 09/19/2024 10:22 AM EST 09/19/2024 10:25 AM EST us Cami Escamilla SOCIAL MEDIA MARKETING ANALYST LAB BLOOD ORDERABLES Final Res ult Performing Organization Address [facility]/ZIP Co de Phone Number [facility] [address] [place] [address] [phone] * Ferritin (09/19/2024 10:22 AM EST) Ferritin 239 20 - 250 ng/mL [facility] Blood Venous blood specimen / Unknown 09/19/2024 10:22 AM EST 09/19/2024 10:25 AM EST us Cami Escamilla SOCIAL MEDIA MARKETING ANALYST LAB BLOOD ORDERABLES Final Res ult Performing Organization Address [facility] Co de Phone Number [facility] [address] [place] [phone] [phone] documented in this encounter Visit Diagnoses Diagnosis Elevated ferritin- Primary Other abnormal blood chemistry documented in this encounter Additional Health Concerns Assessment Noted Time PHQ-9 Depression Total Score: 0 01/29/20 24 11:38 AM EDT documented as of this encounter Care Teams Baggage Inspector Relationship Specialty Start Date End Date Cami Escamilla FNP [address] [place] [address] PCP - General Family Medicine 02/09/22 documented as of this encounter
[2024-09-28 08:16] LABS: Influenza A PCR POSITIVE (Negative); Influenza B PCR NEGATIVE (Negative); Resp Syncy Virus RNA Qual PCR NEGATIVE (Negative); SARS COV2 PCR INHOUSE NEGATIVE (Negative)
--- NOTE | 2024-09-28 09:39 | ED_ITS ---
HPI - General Adult General Chief complaint: Upper Respiratory Symptoms Stated complaint: flu like Time Seen by Provider: 09/28/24 09:37 Source: patient and other (patient's partner) Mode of arrival: ambulatory Limitations: no limitations History of Present Illness ED Provider: Teri Castellanos PA-C HPI narrative: Patient is a 29 year old assigned male at with no reported medical history presenting to the emergency department today with body aches and a cough. Patient states that over the last day he has had body aches and a cough. Patient denies any dizziness, lightheadedness, abdominal pain, nausea, vomiting, fever, chills, blurry vision, double vision, loss of vision, chest pain, difficulty breathing, shortness of breath, back pain, night sweats, pain with urination, increased urinary frequency, increased urinary urgency, blood in his urine or stool, syncope or a near syncopal episode, recent trauma or falls, bowel incontinence, bladder incontinence, or any other complaints at this time. Relieving factors: none Exacerbating factors: none Associated symptoms: cough Treatments prior to arrival: none Related Data Allergies Allergy/AdvReac Type Severity Reaction Status Date / Time No Known Allergies Allergy Verified 09/28/24 07:02 [No Known Allergies*] Review of Systems Constitutional: Constitutional: Reports no additional constitutional complaints, Reports body ache(s), Denies chills, Denies fever(s) and Denies night sweats Eyes: Eyes: Reports no additional eye complaints, Denies blurry vision, Denies change in vision, Denies diplopia, Denies eye discharge, Denies loss of vision and Denies eye pain ENT: Denies dizziness Cardiovascular: Cardiovascular: Reports no additional cardiovascular complaints, Denies chest pain, Denies lightheadedness, Denies Loss of Consciousness and Denies dyspnea Respiratory: Respiratory: Reports no additional respiratory complaints, Reports cough and Denies dyspnea Gastrointestinal: Gastrointestinal: Reports no additional gastrointestinal complaints, Denies abdominal pain, Denies melena, Denies hematochezia, Denies change in bowel habits and Denies change in stool character Genitourinary: Genitourinary: Reports no additional male genitourinary complaints, Denies hematuria, Denies oliguria, Denies difficulty urinating, Denies dysuria, Denies urinary frequency, Denies urinary hesitancy, Denies urinary incontinence and Denies urinary urgency Musculoskeletal: Musculoskeletal: Reports no additional musculoskeletal complaints, Denies numbness and Denies tingling Neurologic: Denies dizziness, Denies loss of vision, Denies numbness and Denies tingling Psychiatric: Psychiatric: Reports no additional psychiatric complaints Endocrine: Endocrine: Reports no additional endocrine complaints Hematologic/Lymphatic: Hematologic/Lymphatic: Reports no additional hematologic/lymphatic complaints Allergic/Immunologic: Allergic/Immunologic: Reports no additional allergic/immunologic complaints PMFSH Past Medical History Attestation statement: The following information was validated with the patient. (patient's partner validated all information) Source: old records reviewed, nursing notes reviewed and other (patient's partner provided additional history and confirmed the history provided by the patient.) Medical History No known health problems Social History Social History Advance Directives: No Advance Directives Information Provided: No Physical Exam ED Vital Signs: Vital Signs - 24 hr 09/28/24 07:00 09/28/24 09:47 Temperature 98.5 F 98.5 F Pulse Rate 84 84 Respiratory Rate 18 18 Blood Pressure 125/84 125/84 Pulse Oximetry 100 100 Oxygen Delivery Method Room Air Room Air BMI result Body Mass Index 30.3 Const General: cooperative, no acute distress, alert and awake Nutritional Appearance: well nourished Orientation/consciousness: patient oriented x3 Limitations: no limitations HENMT Head: Yes normal to inspection and Yes atraumatic Ears: hearing grossly normal bilaterally and external ears normal General nose exam: Normal external nose present, no nasal discharge noted and no epistaxis Face and sinus: Yes normal facial exam, No abrasion and No laceration Mouth: Normal oral and palatal mucosa present, no drooling and no muffled voice Eyes General: appearance normal, both eyes and all related structures Periorbital: periorbital findings normal Eyelids: Yes eyelids normal Conjunctivae: conjunctivae normal Pupils: Equal, round and reactive pupils present EOM: EOMs intact bilaterally Neck Neck: Yes normal visual inspection, Yes full ROM and Yes no lymphadenopathy Chest Chest palpation & inspection: normal inspection of the chest Resp Effort & Inspection: normal respiratory effort and able to speak in complete sentences GI Inspection: Yes normal to inspection Neuro General: patient oriented x3, moves all extremities and CN's II-XI intact bilaterally Cranial nerves: Yes Equal, round and reactive pupils present Cognition (Neuro): normal cognition Extrem General: Yes normal to inspection, Yes full ROM and Yes capillary refill normal Psych Appearance: grossly normal Mental Status: mental status grossly normal Affect: normal affect Attitude: cooperative Thought process: Normal thought process present Thought content: Normal thought content present Insight: Good insight present (Psych) Medical Decision Making Medical Decision Making [facility] Narrative: Patient is a 29 year old assigned male at with no reported medical history presenting to the emergency department today with body aches and a cough. Patient's physical exam was unremarkable. Patient's influenza testing was positive. I explained my physical exam findings as well as all test results to the patient. I answered all questions asked by the patient. I stressed the importance of the patient taking his medication as directed (either prescribed or as the over the counter packaging recommends). I stressed the importance of the patient following up with his primary care provider. I stressed the importance of the patient returning to the emergency department immediately if his symptoms were to worsen or if he were to develop any dizziness, shortness of breath, difficulty breathing, chest pain, blurry vision, loss of vision, nausea, vomiting, abdominal pain, fever, chills, back pain, or any other complaints. Patient verbalized agreement and understanding with this treatment plan and discharge. Differential Diagnosis Differential Diagnoses: The differential diagnosis associated with the presentation includes Cough Influenza RSV COVID-19 Admission/Observation Consideration of admission/observation: Escalation of care including admission/observation considered Patient would have been admitted to the hospital had his work up had any findings where hospital admission was appropriate and his clinical presentation warranted hospital admission. Lab Data [facility] Lab Attestation statement: I reviewed the patient's lab results. My interpretation of these results are in the [facility] Rationale portion of this note. Labs: Lab Results 09/28/24 Range/Units 07:20 Influenza Type A (PCR) POSITIVE A (Negative) Influenza Type B (PCR) NEGATIVE (Negative) RSV RNA Qual (PCR) NEGATIVE (Negative) SARS-CoV-2 RNA (RT-PCR) NEGATIVE (Negative) Discharge Plan Discharge Clinical Impression: Influenza Patient Disposition: Home, Self-Care Instructions: Influenza (DC) Additional Instructions: Follow up with your primary care provider. Return to the emergency department immediately if your symptoms worsen or if you develop any dizziness, shortness of breath, difficulty breathing, chest pain, blurry vision, loss of vision, nausea, vomiting, abdominal pain, fever, chills, back pain, or any other complaints. Referrals: [place] [Primary Care Provider] - Stand Alone Forms: Work/School Release Interventions: ED Discharge Assessment Last Done: 09/28/24 09:47 Discharge Date/Time: 09/28/24 09:41 Print Language: Lithuanian
[2024-09-28 09:47] VITALS: BP 125/84; PULSE 84; RESP 18; TEMP 36.9; O2SAT 100
== END 2024-09-28 09:41 | disposition home or self-care (01) ==
PROVIDERS: Emergency Medicine; Emergency Provider Emergency Medicine
DX: J10.1 Influenza due to other identified influenza virus with other respiratory manifestations (principal); R05.9 Cough, unspecified
CPT/HCPCS: 0241U; 99282; 99283

== ENCOUNTER 2025-05-26 14:41 | Outpatient (AMB) | payer MEDICAID, SELFPAY ==
--- NOTE | 2025-05-26 14:44 | A.OFFVIS_ITS ---
Vital Signs 05/26/25 14:45 Height 5 ft 11 in Weight 228 lb BMI 31.8 BP 146/91 H Blood Pressure Location Rt brachial Position Sitting Pulse 87 Intake Visit Reasons: inguinal hernia Intake Note: This patient presents for an assessment for right inguinal hernia. Pt c/o; right groin, no changes in bowel habits. Denies other symptoms. DI: Abd/pelvis CT 06/28/2024 Application Performance Engineer Required: Yes Application Performance Engineer Language: Senior Software Manager Services: Application Performance Engineer Present Application Performance Engineer Name: Gabbie Accompanied by: Self / Same As Patient Allergies No Known Allergies (No Known Allergies*) Allergy (Verified 05/26/25 14:53) Medication List - Last Reconciled 05/26/25 by Davin Alfonso MD No Known Home Meds HPI HPI inguinal hernia: Details: 29-year-old male referred for a right inguinal hernia. He has noticed this reducible mass in his right groin for about 5 months. He says that this seems to be getting bigger He denies any significant pain. He denies any GI complaints He denies any medical problems. He admits to smoking maybe 1 cigarette a day. [facility] Medical History (Updated 05/26/25 @ 15:02 by Davin Alfonso MD) Reducible right inguinal hernia No known health problems Surgical History No pertinent past surgical history Social History Unable to assess alcohol history related to: Unknown Patient Tobacco Use Status: Tobacco use Unknown Review of Systems Const Denies chills and Denies fever(s) Card Denies chest pain, Denies dyspnea and Denies dyspnea on exertion Resp Denies cough, Denies dyspnea and Denies dyspnea on exertion GI Denies hematochezia and Denies change in bowel habits Denies hematuria and Denies difficulty urinating Musc Denies back pain and Denies limited range of motion Neuro Denies focal weakness and Denies convulsions Psych Denies depression and Denies mood swings Physical Exam Vital Signs: Last Vital Signs Pulse 87 05/26/25 14:45 BP 146/91 H 05/26/25 14:45 BMI result Body Mass Index 31.8 Const General: comfortable and no acute distress Orientation/consciousness: patient oriented x3 Neck Neck: Yes no lymphadenopathy Resp Auscultation: clear to auscultation bilaterally Cardio Rhythm: regular rhythm GI Other: Right inguinal hernia, reducible Palpation (GI): Soft to palpation, nontender and no guarding Neuro General: patient oriented x3 Assessment & Plan Assessment & Plan (1) Reducible right inguinal hernia: Code(s): K40.90 - Unilateral inguinal hernia, without obstruction or gangrene, not specified as recurrent Category: Medical Plan: He has a reducible right inguinal hernia and he wants to proceed with the repair. I reviewed with him the technique of repair with mesh placement. I explained the risks including but not limited to bleeding, infections, injury to other organs including bowel, recurrence, prolonged pain postop, as well as the benefits and alternatives. I reviewed with him what to expect postoperatively He says he understands and has given consent. Coding Level of Care Code New Pt Level 3 (63141) Diagnoses Reducible right inguinal hernia K40.90
[2025-05-26 14:45] VITALS: BP 146/91; PULSE 87; BMI 31.8
== END 2025-05-26 15:01 | disposition home or self-care (01) ==
LOC: HO.HGS 14:42
PROVIDERS: PCP Registered Nurse; Referring Provider Registered Nurse; Visit Provider Surgery
DX: K40.90 Unilateral inguinal hernia, without obstruction or gangrene, not specified as recurrent (principal)
CPT/HCPCS: 99203

== ENCOUNTER → 2025-05-26 14:41 | Outpatient (BNVA) | payer MEDICAID, SELFPAY | PROVIDERS: PCP Registered Nurse; Visit Provider Surgery | DX: Z01.818 Encounter for other preprocedural examination (principal); K40.90 Unilateral inguinal hernia, without obstruction or gangrene, not specified as recurrent | CPT/HCPCS: 99202 ==

== ENCOUNTER 2025-06-18 09:05 | Day surgery (SDC) | payer MEDICAID, SELFPAY ==
--- OUTSIDE RECORDS SUMMARY | 2025-06-08 19:42 | XMS_ITS | Encounter Summary ---
Author Organization [employer] Address [address] [place] [address] Care Team Providers Care Ultrasonic Solderer Name Role Phone Cami Escamilla Primary Care Provider [phone] Reason for Visit * Reason Onset Date Comments Nurse Triage 08/05/2024 Encounter Details Date Type Department Care Team (Late st Contact Info) Description 08/05/2024 Telephone [facility] [address] [place] [address] Cami Escamilla FNP [address] [place] [address] Nurse Triage Social History Tobacco Use Types [...] daily activities. Pt also has a lump LRQof abdomen which ED reports is a hernia and Pt was advised to follow up for evaluation. Pt has family history of anemia . Pt drinks adequate liquids. ASK apt with PCP 08/26/23 @ 1015am. Pt agrees with disposition . Insurance is verified as active prior [...] documented as of this encounter Care Teams Ultrasonic Solderer Relationship Specialty Start Date End Date Cami Escamilla FNP [address] [place] [address] PCP - General Family Medicine 02/09/22 documented as of this encounter
--- OUTSIDE RECORDS SUMMARY | 2025-06-08 19:42 | XMS_ITS | Clinical Summary ---
Author Organization [employer] Address [address] [facility] [address] [place] [address] Care Team Providers Care Electrical Logging Engineer Name Role Phone Cami Escamilla MEAT GRINDER Primary Care Provider Allergies No known active allergies Medications Blood Pressure kitIndications: Elevated blood pressure reading Please check blood pressure once daily for the next 2 weeks 1 kit 01/29/2024 Active Active Problems Problem Noted Date Diagnosed Date Healthcare maintenance 04/11/2025 Overview (04/11/2025): Last PE: 04/09/25 Dental: [facility] Hep B: restarted vaccine series Mar 2025. Tobacco use 04/11/2025 Assessment & Plan (04/11/2025 12:39 PM EDT): - Smoking 1 cigg/day - Smoking cessation resources encouraged Hypersomnolence 08/26/2024 Assessment & Plan (04/11/2025 12:34 PM EDT): - Excess sleep: 2-3 nap during day plus 8-10 hours per night and still does not feel well rested - Labs: CBC, A1c, TSH, CMP unremarkable Aug 2024 - Hospital based polysomnography Aug 2024 - normal. AHI 2, oxygen desire 90% - Referral to Sleep Medicine consult placed 04/11/25 for further eval Assessment & Plan (08/26/2024 3:16 PM EST): [...] Referral to Surgery placed 08/26/24 ED precautions Assessment & Plan (04/11/2025 12:33 PM EDT): - Currently scheduled May 2025 for initial consult - Scrotal US ordered - ED precautions reviewed Elevated blood pressure reading 01/30/2024 Assessment & [...] at end of visit Follow up precautions Resolved Problems Problem Noted Date Diagnosed Date Resolved Date Severe dental caries 01/16/2024 025 Pain in elbow 02/15/2017 09/12/2022 Encounters Date Type Department Care Team Description 06/08/2025 Population Health Risk Score [facility] () Department [address] [place] [phone] Provider, Population Health Generic 04/09/2025 2:45 PM EDT Office Visit [facility] [address] [place] [address] Cami Escamilla FNP Encounter for routine history and physical examination of adult (Primary Dx); Encounter for immunization; Scrotal swelling; Right inguinal hernia; Hypersomnolence; Healthcare maintenance; Tobacco use 04/09/2025 Travel 04/08/2025 Telephone [facility] [address] [place] [address] Cami Escamilla FNP Chart Prep 04/01/2025 Patient Outreach [facility] [address] [place] [address] Cami Escamilla FNP Pre-visit Planning (Pre visit planning LVM ) from Last 3 Months Immunizations Immunization Administration Dates Next Due HepB-CpG 04/09/2025 Influenza injectable quadriv alent preservative free 09/12/2022,05/31/2020,05/24/2017 [...] Sign Reading Time Taken Comments Blood Pressure 124/80 04/09/2025 3:55 PM EDT man nual Pulse 104 04/09/2025 2:45 PM EDT Temperature 36.3 C (97.3 F) 04/09/2025 2:45 PM EDT Respiratory Rate 20 04/09/2025 2:45 PM EDT Oxygen Saturation 98% 04/09/2025 2:45 PM EDT Inhaled Oxygen Concentration - - Weight 101 kg (222 lb) 04/09/2025 2:45 PM EDT Height 180.3 cm (5' 11 ) 04/09/2025 2:45 PM EDT Body Mass Index 30.96 04/09/2025 2:45 PM EDT Plan of Treatment Health Maintenance Due Date Last Done Comments Disability Screening 1995 Family Planning (PISQ) 2010 HPV Vaccines (1 - Male 3-dos e series) 2010 Hepatitis A Vaccines (1 of 2 - Risk 2-dose series) 2014 Dental Oral Exam 10/21/2024 04/22/2024 Dental Prophylaxis 10/21/2024 04/22/2024 Depression Screening 01/28/2025 01/29/2024, 01/29/2024 SDOH Screening 01/28/2025 01/29/2024 COVID-19 Vaccine (3 - 2024-2 6 season) 2025 01/03/2021, 12/07/2020 Influenza Vaccine (#1) 2025 , 05/31/2020, 05/24/2017 Dental X-Ray: Bitewings 04/23/2025 04/22/20 24, 06/21/2023, 06/22/2022 Hepatitis B Vaccines (2 of 2 - CpG 2-dose series) 05/07/2025 04/09/2025 Alcohol/Substance Use Screening 08/26/2025 08/26/2024 Tobacco Screening 01/29/2026 01/29/2025 Dental X-Ray: Full Mouth 04/23/2027 04/22/2024 DTaP/Tdap/Td [...] patient's age to complete this topic Meningococcal B Vaccine Aged Out No l onger eligible based on patient's age to complete this topic Meningococcal Vaccine Aged Out No yvonne perry eligible based on patient's age to complete this topic Pneumococcal Vaccine: Pediatrics (0 to 5 Years) and At-Risk Patients (6 to 49) Years Aged Out No longer eligible b ased on patient's age to complete this topic RSV under 20 months Aged Out No longe r eligible based on patient's age to complete this topic Rotavirus Vaccines Aged Out No longer eligible based on patient's age to complete this topic Procedures Procedure Name Priority Date/Time Associated Diagnosis Comments HEPATITIS C VIRAL RNA, QUANTITATIVE, REAL-TIME PCR Routine 09/19/2024 10:22 AM EST Routine health maintenance HIV 1/2 ANTIGEN/ANTIBODY, FOURTH GENERATION W/RFL Routine 09/19/2024 10:22 AM EST Routine health maintenance PROPHYLAXIS - ADULT Routine 04/22/2024 9 :30 AM EDT INTRAORAL - COMPLETE SERIES OF RADIOGRAPHIC IMAGES Routine 04/22/2024 9:30 AM EDT COMPREHENSIVE ORAL EVALUATION - NEW OR ESTABLISHED PATIENT Routine 04/22/2024 9:30 AM EDT Dental calculus Encounter for dental examination Dental caries Closed fracture of incisor teeth, initial encounter from Last 3 Months or Most Recently Relevant to Health Maintenance Results * Hepatitis C Viral RNA, Quantitative, Real-Time PCR (09/19/2024 10:22 AM EST) Hepatitis C Viral Load <15 NOT DETECTED NOT DETECTED IU/mL [facility] HCV Log PCR <1.18 NOT DETECTED NOT DETECTED Log IU/mL [facility] Comment:For additional infor nhungmanuel, please refer [email or web address]/faq/[email or web address](This link is being provided for informational/educational purposes only.)THIS TEST WAS PERFORMED AT:[facility] [place] [id number] GREGORY MD Blood 09/19/2024 10:2 2 AM EST 09/19/2024 10:25 AM EST Cami Escamilla [facility] BLOOD ORDERABLES Final Res ult Performing Organization Address [facility] Co de Phone Number [facility] [address] [place] [address] [phone] HIV-1/2 Antigen and Antibodies, Fourth Generation, with Reflexes (09/19/2024 10:22 AM EST) Pathologist [facility] HIV AB/AG Nonreactive Nonreactive [facility] Comment:HIV-1 p24 Ag and/or HIV-1/HIV-2 Ab not detected.A test result that is nonreactive does not exclude thepossibility of exposure to or infection with HIV-1 and/orHIV-2. Nonreactive results in this assay for individualswith prior exposure to HIV-1 and/or HIV-2 may be due toantigen and antibody levels that are below the limit ofdetection of this assay.The [employer] HIV Ag/Ab Combo assay result andsupplemental assay results should be interpreted inconjunction with the patient's clinical presentation,history and other laboratory results. If the results areinconsistent with clinical evidence, additional testing issuggested to confirm the result. Blood Venous blood specimen / Unknown 09/19/2024 10:22 AM EST 09/19/2024 10:25 AM EST Cami REYESP LAB BLOOD ORDERABLES Final Res ult Performing Organization Address [facility]/State/[facility] Co de Phone Number [facility] [address] [place] [address] [phone] from Last 3 Months or Most Recently Relevant to Health Maintenance Insurance [facility] HE[facility]AN DENTAL - HSN PARTIAL (MEDICAID) Care Teams Electrical Logging Engineer Relationship Specialty Start Date End Date Cami Escamilla FNP [address] [place] [address] PCP - General Family Medicine 02/09/22
--- OUTSIDE RECORDS SUMMARY | 2025-06-08 19:42 | XMS_ITS | Encounter Summary ---
Author Organization [facility] Address [address] [facility] [address] [place] [address] Care Team Providers Care Cash On Delivery Clerk Name Role Phone Cami Escamilla CHRISTI Primary Care Provider [phone] Encounter Details Date Type Department Care Team (Late st Contact Info) Description 06/08/20[address] Risk Score [facility] ([facility]) Department [address] [phone] Provider, Population Health Generic Social History Tobacco Use Types Packs/Day Years [...] documented as of this encounter Care Teams Cash On Delivery Clerk Relationship Specialty Start Date End Date Cami Escamilla FNP [address] [place] [phone] PCP - General Family Medicine 02/09/22 documented as of this encounter
--- NOTE | 2025-06-15 14:39 | HO.ANESPROP2 ---
Documented by User: Christina Dorsey NP 06/15/25 14:39 HPI - Anesthesia Eval Consult details Narrative: 29yo M for Right Repair Hernia Inguinal Reducible with mesh PMFSH Active Problems Active Problems: All Active Problems Reducible right inguinal hernia (Acute) Lab test negative for COVID-19 virus (Acute) Past Medical History Medical History History of arthroplasty of right elbow Hypersomnolence Reducible right inguinal hernia No known health problems Family History Family History (Updated 06/15/25 @ 10:45 by CHAD Cortes) Mother Dorsalgia HTN (hypertension) Father Anxiety Sister Anxiety Maternal Uncle Colon cancer Surgical History Surgical History History of elbow surgery Social History Social History (Updated 06/15/25 @ 10:46 by CHAD Cortes) Alcohol intake: never Patient Tobacco Use Status: Current everyday Tobacco user Tobacco use type: Cigarette Cigarettes Per Day: 1 Smoked in Last 30 Days: Yes Use of substances other than those prescribed or required for medical reasons: Yes Substance Use Type: Marijuana Have you been hit, kicked, punched, or otherwise hurt by someone within the past year? If so, by whom?: No Are you DNR?: No Advance Directives: No Advance Directives Information Provided: Yes Meds Allergies Allergy/AdvReac Type Severity Reaction Status Date / Time No Known Allergies (No Known Allergy Verified 06/18/25 09:21 Allergies*) Assessment and Plan Assessment Anesthesia Assessment: Chart Reviewed Documented by User: Moe Carias MD 06/18/25 10:47 PMFSH Past Medical History Medical History History of arthroplasty of right elbow Hypersomnolence Reducible right inguinal hernia No known health problems Functional capacity: independent ambulation Family History Family History (Updated 06/15/25 @ 10:45 by CHAD Cortes) Mother Dorsalgia HTN (hypertension) Father Anxiety Sister Anxiety Maternal Uncle Colon cancer Family history of problems with anesthesia: No Surgical History Surgical History History of elbow surgery History of Problems with Anesthesia: No Social History Social History (Updated 06/15/25 @ 10:46 by CHAD Cortes) Alcohol intake: never Patient Tobacco Use Status: Current everyday Tobacco user Tobacco use type: Cigarette Cigarettes Per Day: 1 Smoked in Last 30 Days: Yes Use of substances other than those prescribed or required for medical reasons: Yes Substance Use Type: Marijuana Have you been hit, kicked, punched, or otherwise hurt by someone within the past year? If so, by whom?: No Are you DNR?: No Advance Directives: No Advance Directives Information Provided: Yes Meds Allergies Allergy/AdvReac Type Severity Reaction Status Date / Time No Known Allergies (No Known Allergy Verified 06/18/25 09:21 Allergies*) Exam Exam Date and Time: 06/18/2025 Airway Mallampati Class: II TM Dist: >3cm Neck ROM: Full Heart: rrr Lungs: ctab vesicular Assessment and Plan Assessment Anesthesia Assessment: Anesthesia Plan Discussed and Smoking Cess. Discussed Final Anesthetic Review Family History of Problems with Anesthesia: No History of Problems with Anesthesia: No NPO: Yes ASA Class: II Final Preanesthetic Review: No Changes in Pt Med Stat, Meds/Allgs Chart Reviewed, Consent Obtained/Reviewed and Anes Risks/Benef Reviewed Patient Risk: Low Procedure Risk: Low Anesthetic Plan Anesthetic Plan: GA Disposition: Standard PACU
[2025-06-16 08:09] VITALS: BMI 31.8
[2025-06-18] VITALS (7 sets, daily range): BP systolic 110–140; BP diastolic 64–89; PULSE 80–100; RESP 12–17; TEMP 36.6–37.2; O2SAT 94–98; BMI 31.9
[2025-06-18] MEDS: Lactated Ringers 1,000 ML 100 ML IVCONT (09:40)
--- NOTE | 2025-06-18 10:29 | MHC.SHP ---
Pre-Procedural Eval Section A - 24 Hr Update-Section A only Date of Service: 06/18/25 The patient is an INPATIENT: No Changes since office visit: No Cold of Flu in the past 2 weeks, No New Medical Problems, No Changes in Medication and No Patient answered all questions The patient has been examined within 24 hours of the surgical procedure. The History & Physical has been completed within 30 days and I have reviewed it.: Yes Section B - Complete if H&P > 30 days Chief Complaint: Unilateral inguinal hernia, without obstruction Allergies: Allergies Allergy/AdvReac Type Severity Reaction Status Date / Time No Known Allergies (No Known Allergy Verified 06/18/25 09:21 Allergies*) Plan I have reviewed the history and physical and performed a pertinent physical examination on my patient. No changes have occurred unless specified. Time Spent With Patient Time: Total time managing care of this patient today ____ minutes.
--- NOTE | 2025-06-18 12:09 | P.OP_ITS ---
Operative Note Operative Note Date of Service: 06/18/25 Narrative: Preop diagnosis: Right inguinal hernia Postop diagnosis: Right inguino-scrotum hernia, indirect Procedure: Repair of a right inguinal hernia with mesh, extensive lysis of adhesions Surgeon: Davin Alfonso MD emergency medicine physician assistant: MARY Salinas The patient is a 29-year-old male with note of a large right inguinal hernia that appeared to also extend into the scrotal area. This has with the technique of the planned procedure. He is aware of the risks, benefits, and alternatives He was brought to the operating room. He was placed supine under general anesthesia via endotracheal tube.. The right groin was prepped and draped in the usual sterile fashion. A surgical time-out was done. The patient received cefazolin 2 g IV preoperatively . I infiltrated the planned line of incision with lidocaine 1%. I made the incision on the right groin with a blade 15. This was carried down with electrocautery through the full-thickness of the skin subcutaneous fat. I was able to identify the external oblique aponeurosis. I bluntly dissected this and I was able to define the external ring. I made an incision on the aponeurosis and extended this inferomedially to connect with the external ring. The ingu inal canal was therefore entered. I applied hemostats on the divided edges of the aponeurosis. I bluntly dissected the underside of the aponeurosis to create a pocket for the mesh. The cord along with the large hernia was seen. This was a very large hernia extending all the way to the scrotum. I had to do a lot of careful dissection before he is able to pass a Joey drain around the cord and the hernia contents this [place] drain was used for retraction. There appeared to have a very large sac that was extended all the way to the scrotal area. I had to do a lot of careful dissection sharply with Metzenbaum scissors as well as with blunt dissection using a gauze to carefully identify the entire sac. By doing so, I was able to gently and slowly separate the hernia from the cord as well as the rest of the cord contents. The vas deferens was identified and was protected during the rest of the dissection. I continued to separate the large sac off of the rest of the cord contents. The hernia sac was very markedly adherent to the rest of the cord contents. With a lot of careful dissection was able to eventually released the entire sac from the rest of the cord contents. I twisted this serially down to the internal ring. I applied a clamp and excise this hernia sac above the clamp. I did a suture ligation of the stump of the hernia sac with the Polysorb 2-0 stitch. This hernia was going through the internal ring so this was an indirect hernia. I reduced stump of the hernia sac the internal ring. I reinforced the internal ring with a large-sized Prolene plug. The plug was secured to the shelving edge of the inguinal ligament laterally and the internal oblique superiorly and medially using its inner leaves using a Prolene 2-0 stitch.. I reinforced the rest of the floor of the canal with a keyhole mesh. The tails of the mesh were passed around the cord at the level of the internal ring with a Prolene 2-0 stitch. I flattened the mesh underneath the aponeurosis. I secured the mesh with Prolene 2-0 sutures to the pubic ramus inferomedially, the internal oblique medially as well as the shelving edge of the inguinal ligament laterally. I closed the external oblique aponeurosis over the mesh with a running Polysorb 2-0 stitch to re-create the external ring . I irrigated. I observed for hemostasis. Once hemostasis was confirmed, I reapposed the subcutaneous layer Polysorb 3-0 Prolene interrupted sutures. Skin closure was achieved with Polysorb 4-0 subcuticular running stitch. The area was infiltrated with Marcaine 0.5% for postop analgesia. Dressings were applied and the procedure was then completed The patient tolerated procedure well. There were no immediate complications. Initial and final counts of sponges and instruments were correct. Estimated blood loss was about 25 cc. The patient is extubated and then transferred to the recovery room with stable vital signs.
== END 2025-06-18 13:38 | disposition home or self-care (01) ==
PROVIDERS: PCP Registered Nurse; Visit Provider Surgery
PROC: (CPT 49505; principal; 2025-06-18 11:10)
DX: K40.90 Unilateral inguinal hernia, without obstruction or gangrene, not specified as recurrent (principal); Z98.890 Other specified postprocedural states; F17.210 Nicotine dependence, cigarettes, uncomplicated
CPT/HCPCS: 49505; 88302; C1781; J0330; J0690; J1100; J1171; J1885; J2003; J2250; J2405; J2704; J2795; J3010

== ENCOUNTER → 2025-06-18 09:05 | Outpatient (BNV) | payer MEDICAID, SELFPAY | PROVIDERS: PCP Registered Nurse; Visit Provider Surgery | DX: K40.90 Unilateral inguinal hernia, without obstruction or gangrene, not specified as recurrent (principal) | CPT/HCPCS: 49505 ==

== ENCOUNTER 2025-07-09 10:55 | Outpatient (AMB) | payer MEDICAID, SELFPAY ==
--- NOTE | 2025-07-09 11:00 | MHC.OFFVIS ---
Vital Signs 07/09/25 11:12 Height 5 ft 11 in Weight 227 lb 1.218 oz BMI 31.7 BP 110/72 Blood Pressure Location Lt brachial Position Sitting Pulse 82 Intake Visit Reasons: s/p RIH w/mesh Intake Note: Patient is seen in office for post op assessment post right inguinal hernia repair. Pt c/o: denies any concerns surgery: 06/18/25 () Senior Technical Business Analyst Required: Yes Senior Technical Business Analyst Language: Spa Manager Services: Senior Technical Business Analyst Present Senior Technical Business Analyst Name: Candace BONILLA Information Interpreted: non-clinical & clinical Accompanied by: Self / Same As Patient Allergies No Known Allergies (No Known Allergies*) Allergy (Verified 07/09/25 11:11) HPI HPI s/p RIH w/mesh: Details: 30 year old male here for wound check and follow up after undergoing repair of a right inguinal hernia with mesh, extensive lysis of adhesions on 06/18/[address] Alfonso. Patient tolerated the procedure well. He took the percocet for the first 1-2 weeks. He currently has no pain at all. He is eating normally and moving his bowel regularly. He has no concerns. He denies fevers, chills, nausea, vomiting, diarrhea, constipation. [facility] Medical History History of arthroplasty of right elbow Hypersomnolence Reducible right inguinal hernia No known health problems Surgical History History of elbow surgery Family History Mother Dorsalgia HTN (hypertension) Father Anxiety Sister Anxiety Maternal Uncle Colon cancer Social History Alcohol intake: never Patient Tobacco Use Status: Current everyday Tobacco user Tobacco use type: Cigarette Cigarettes Per Day: 1 Substance Use Type: Marijuana Review of Systems Const All systems reviewed & are unremarkable except as noted in HPI and below Physical Exam Vital Signs: Last Vital Signs Pulse 82 07/09/25 11:12 BP 110/72 07/09/25 11:12 BMI result Body Mass Index 31.7 Const General: comfortable, no acute distress and alert Orientation/consciousness: patient oriented x3 Resp Effort & Inspection: normal respiratory effort and able to speak in complete sentences GI Other: soft, nondistended right inguinal incision well approximated and healed, no surrounding erythema or edema, very mild underlying induration nontender Palpation (GI): no guarding and not rigid Percussion: Yes normal to percussion Skin General skin exam: no rashes or lesions noted Neuro General: patient oriented x3 and moves all extremities Results Reviewed Results Reviewed: Right inguinal hernia, herniorrhaphy: Mesothelial-lined fibrovascular and adipose tissue with chronic inflammation, consistent with hernia sac Assessment & Plan Assessment & Plan (1) S/P right inguinal hernia repair: Code(s): Z98.890 - Other specified postprocedural states; Z87.19 - Personal history of other diseases of the digestive system Category: Surgical Plan 30 year old male s/p Repair of a right inguinal hernia with mesh, extensive lysis of adhesions on 06/18/25. He tolerated the procedure well. He has no concerns today and the incision site is well healed and clean without evidence of infection. He was instructed to continue heavy lifting and strenuous lifting restrictions for another 3 weeks. He can follow up as needed if he develops concerns. All questions answered. Coding Level of Care Code Global (71715) Diagnoses S/P right inguinal hernia repair Z98.890; Z87.19
[2025-07-09 11:12] VITALS: BP 110/72; PULSE 82; BMI 31.7
--- OUTSIDE RECORDS SUMMARY | 2025-07-09 11:50 | XMS_ITS | Clinical Summary ---
Author Organization [employer] Address [address] [facility] [address] [place] [address] Care Team Providers Care Hearing Consultant Name Role Phone Cami Escamilla [employer] Primary Care Provider [phone] Allergies No known active allergies Medications Blood Pressure kitIndications: Elevated blood pressure reading Please check blood pressure once daily for the next 2 weeks 1 kit 01/29/2024 Active Active Problems Problem Noted Date Diagnosed Date Healthcare maintenance 04/11/2025 Overview (04/11/2025): Last PE: 04/09/25 Dental: [facility] Hep B: restarted vaccine series Mar [...] Team Description 06/08/2025 Population Health Risk Score [facility] () Department [address] [place] [address] [phone] Provider, Population Health Generic 04/09/2025 2:45 PM EDT Office Visit [facility] [address] [place] [address] Cami Escamilla FNP Encounter for routine history and physical examination of adult (Primary Dx); Encounter for immunization; Scrotal swelling; Right inguinal hernia; Hypersomnolence; Healthcare maintenance; Tobacco use 04/09/2025 Travel 04/08/2025 Telephone [facility] [address] [place] [address] Cami Escamilla FNP Chart Prep from Last 3 Months Immunizations Immunization Administration [...] Procedure Name Priority Date/Time Associated Diagnosis Comments GROSS AND MICROSCOPIC LEVEL 2 Routine 06/18/2025 11:41 AM EDT Elevated ferritin HEPATITIS C VIRAL RNA, QUANTITATIVE, REAL-TIME PCR [...] Recently Relevant to Health Maintenance Results * Gross and Microscopic Level 2 (06/18/2025 11:41 AM EDT) 06/18/2025 11:4 1 AM EDT 06/18/2025 12:30 PM EDT [facility] - 06/21/2025 2:11 PM EST ----- ------- Name: Philip Aguero Age/Sex: 29/M : 1995 Unit#: [id number] Attend Dr: Davin Alfonso MD Re06/18/25 Status: [facility] Location: [facility] Disch: ----- ------- SPEC : [id number] RECD: 06/18/25 STATUS: CLOTILDE BALDWINYani NUM: [id number] [place]: 06/18/25-[address] [facility] [address]: Davin Alfonso MD ENTERED: 06/18/25 SP TYPE: Surgical OTHR DR: Cami Escamilla ORDERED: Gross Micro L2 Diagnosis Right inguinal hernia, herniorrhaphy: Mesothelial-lined fibrovascular and adipose tissue with chronic inflammation, consistent with hernia sac. Clinical History Unilateral inguinal hernia, without obstruction, right Microscopic Description Microscopic sections reviewed. Material Received Hernia sac Gross Description Received in formalin is a 5.2 x 2.8 x 1.4 cm saccular portion of lane-red fibromembranous connective tissue which is focally thickened measuring up to 0.5 cm. Mass lesions are not identified. Optical Worker sections are submitted in cassette A1. (RJD) IHC S/NG Disclaimer NOTE: Unless otherwise stated, all tissue is formalin-fixed and paraffin-embedded. Some or all of the immunohistochemical tests reported herein may have been developed and their performance characteristics determined by [facility]. They have not been cleared or approved by the U.S. Food and Drug Administration (FDA). However, the FDA has determined that such clearance or approval is not necessary. This laboratory is certified under the Clinical Laboratory Improvement Amendments of 1988 (CLIA) as qualified to perform high complexity clinical laboratory testing. Copies To: Davin Alfonso MD [facility] [address] [place] [id number] Cami Escamilla [address] [address] CONTINUED ON NEXT PAGE ----- ------- Name: Philip Aguero Age/Sex: 29/M : 1995 Unit#: [id number] Attend Dr: Davin Alfonso MD Re06/18/25 Status: [facility] Location: [facility] Disch: ----- ------- SPEC : [id number] RECD: 06/18/25 STATUS: CLOTILDE JAVED NUM: [id number] [place]: 06/18/[address] [facility] [address]: Davin Alfonso MD ENTERED: 06/18/25 SP TYPE: Surgical OTHR DR: Cami Escamilla ORDERED: Gross Micro L2 Copies To: (Continued) [phone] ----- ------- Signed (signature on file) Robert Del Toro MD 06/21/25 1411 ----- ------- END OF REPORT Generic External Data Provider LAB CYTOLOGY KATIE DOYLE Final Result Performing Organization Address [facility]/ZIP Co de Phone Number [facility] [address] [place] [phone] * Hepatitis C Viral RNA, Quantitative, Real-Time PCR (09/19/2024 10:22 AM EST) Hepatitis C Viral Load <15 NOT DETECTED NOT DETECTED IU/mL [facility] HCV Log PCR <1.18 NOT DETECTED NOT DETECTED Log IU/mL [facility] Comment:For additional infor clint, please refer [email or web address].[employer]/faq/EAO70a2(This link is being provided for informational/educational purposes only.)THIS TEST WAS PERFORMED AT:[facility] [place] [phone] GREGORY MD Blood 09/19/2024 10:2 2 AM EST 09/19/2024 10:25 AM EST Cami REYESP LAB BLOOD ORDERABLES Final Res ult Performing Organization Address [facility]/ZIP Co de Phone Number [facility] [address] [place] [address] [place] [phone] HIV-1/2 Antigen and Antibodies, Fourth Generation, with Reflexes (09/19/2024 10:22 AM EST) HIV AB/AG Nonreactive Nonreactive [facility] Comment:HIV-1 p24 Ag and/or HIV-1/HIV-2 Ab not detected.A test result that is nonreactive does not exclude thepossibility of exposure to or infection with HIV-1 and/orHIV-2. Nonreactive results in this assay for individualswith prior exposure to HIV-1 and/or HIV-2 may be due toantigen and antibody levels that are below the limit ofdetection of this assay.The [employer] HIV Ag/Ab Combo assay result andsupplemental assay results should be interpreted inconjunction with the patient's clinical presentation,history and other laboratory results. If the results areinconsistent with clinical evidence, additional testing issuggested to confirm the result. Blood Venous blood specimen / Unknown 09/19/2024 10:22 AM EST 09/19/2024 10:25 AM EST Cami Escamilla [facility] LAB BLOOD ORDERABLES Final Res ult [facility] [address] [place] [address] [phone] from Last 3 Months or Most Recently Relevant to Health Maintenance Insurance [facility]ENT[facility] - HSN PARTIAL (MEDICAID) Care Teams Hearing Consultant Relationship Specialty Start Date End Date Cami Escamilla FNP [address] [place] [address] PCP - General Family Medicine 02/09/22
--- OUTSIDE RECORDS SUMMARY | 2025-07-09 11:50 | XMS_ITS | Encounter Summary ---
Author Organization [employer] Address [address] [place] [address] Care Team Providers Care Incident Engineer Name Role Phone Cami Escamilla Primary Care Provider [phone] Reason for Visit * Reason Onset Date Comments Nurse Triage 08/05/2024 Encounter Details Date Type Department Care Team (Late st Contact Info) Description 08/05/2024 Telephone [facility] [address] [place] [address] Cami Escamilla FNP [address] [place] [address] Nurse Triage Social History Tobacco Use Types [...] documented as of this encounter Care Teams Incident Engineer Relationship Specialty Start Date End Date Cami Escamilla FNP [address] [place] [address] PCP - General Family Medicine 02/09/22 documented as of this encounter
== END 2025-07-09 11:28 | disposition home or self-care (01) ==
LOC: HO.HGS 10:56
PROVIDERS: PCP Registered Nurse; Visit Provider Physician Assistant Surgical
DX: Z98.890 Other specified postprocedural states (principal); Z87.19 Personal history of other diseases of the digestive system
CPT/HCPCS: 99024

== ENCOUNTER → 2025-07-09 10:55 | Outpatient (BNVA) | payer MEDICAID, SELFPAY | PROVIDERS: PCP Registered Nurse; Visit Provider Physician Assistant Surgical | DX: Z98.890 Other specified postprocedural states (principal) | CPT/HCPCS: 99212 ==

== ENCOUNTER 2025-07-22 15:03 | Outpatient (REF) | payer MEDICAID, SELFPAY ==
--- NOTE | ~2025-07-22 | US_ITS ---
EXAMINATION: US SCROTUM CLINICAL INFORMATION: right testicular swelling, suspected hernia. COMPARISON: None available. TECHNIQUE: A sonogram of the scrotum was performed assessing giles-scale appearance and color Doppler flow. Spectral Doppler analysis of the arterial and venous flow were performed in the testes bilaterally. FINDINGS: RIGHT: Right testicle measures 4.2 x 2.4 x 3.0 cm, volume 15.8 ml. No focal testicular parenchymal lesions are visualized. Spectral Doppler analysis of the venous flow is normal in the right testis. Right epididymal head contains a cyst with debris or spermatocele that measures 0.7 x 0.4 x 0.6 cm. Right appendix epididymis seen. No right hydrocele. Varicocele present. LEFT: Left testicle measures 4.5 x 2.1 x 2.2 cm, volume 15.8 ml. No focal testicular parenchymal lesions are visualized. Spectral Doppler analysis of the arterial and venous flow is normal in the left testis. Left epididymal head contains a 0.3 x 0.2 x 0.3 cm epididymal cyst. No left hydrocele. Varicocele present. US/US scrotum IMPRESSION: 1. Symmetric and normal appearance of the testicles. 2. Bilateral varicocele. 3. No hernia demonstrated. Electronically signed by: Edna Faria MD 07/22/2025 04:21 PM [facility]
== END 2025-07-22 15:04 | disposition home or self-care (01) ==
LOC: HO.US 15:03
PROVIDERS: PCP Registered Nurse; Visit Provider Registered Nurse
DX: N50.89 Other specified disorders of the male genital organs (principal)
CPT/HCPCS: 76870

== ENCOUNTER → 2025-07-22 15:06 | Outpatient (BNV) | payer MEDICAID, SELFPAY | PROVIDERS: PCP Registered Nurse; Visit Provider Radiology Body Imaging | DX: I86.1 Scrotal varices (principal) | CPT/HCPCS: 76870 ==